=== PATIENT | male | born 1975 | race Caucasian/White ===

== ENCOUNTER 2022-11-03 21:00 | Inpatient (IN) | payer MEDICAID ==
[~2022-11-03] VITALS: Ht 172.7 cm; Wt 80.3 kg
[2022-11-03 21:26] VITALS: BP 142/90
--- NOTE | 2022-11-03 21:35 | NUR ---
TO LOBBY FOLLOWING TRIAGE
--- NOTE | 2022-11-04 00:15 | NUR ---
PT TO BED 12 VIA W/C
--- NOTE | 2022-11-04 00:31 | NUR ---
Patient lying in bed, A/Ox4, chest rise and fall symmetrical, no s/s of distress, patient on monitor.
[2022-11-04] MEDS: VANCOMYCIN 1,000 MG in DEXTROSE 5% 250 ML IV ONE ×2 (00:35→02:30)
[2022-11-04] MEDS ORDERED: MORPHINE SULFATE 4 MG/ML SYR IVP ONE (00:35)
[2022-11-04] MEDS ORDERED: PIPERACILLIN/TAZOBACTAM 3.375 GM in DEXTROSE 5% 50 ML IV ONE (00:35)
[2022-11-04] MEDS ORDERED: NACL 0.9% 1,000 ML IV ONE ×2 (00:35→03:15)
--- NOTE | 2022-11-04 00:45 | NUR ---
X-Ray at bedside.
[2022-11-04 01:27] LABS: BASOPHILS # (AUTO) 0.1 K/uL (0.00-0.22); BASOPHILS % (AUTO) 0.6 % (0.0-2.0); EOSINOPHILS # (AUTO) 0.1 K/uL (0-0.4); EOSINOPHILS % (AUTO) 0.3 % (0.0-4.0); HEMATOCRIT 37.4 % (36-52); HEMOGLOBIN 12.5 g/dL (12.0-18.0); LYMPHOCYTES # (AUTO) 1.9 K/uL (2.0-11.5); LYMPHOCYTES % (AUTO) 8.1 % (20.5-51.1); MEAN CORPUSCULAR HEMOGLOBIN 29 pg (27-31); MEAN CORPUSCULAR HGB CONC 34 g/dL (33-37); MEAN CORPUSCULAR VOLUME 85.8 fL (80-94); MONOCYTES # (AUTO) 1.6 K/uL (0.8-1.0); MONOCYTES % (AUTO) 7.1 % (1.7-9.3); NEUTROPHILS # (AUTO) 19.5 K/uL (1.8-7.7); NEUTROPHILS % (AUTO) 83.9 % (42.2-75.2); PLATELET COUNT (AUTO) 646 K/uL (140-450); RED BLOOD CELL COUNT(AUTO) 4.36 MIL/uL (4.20-6.10); RED CELL DISTRIBUTION WIDTH 12.4 % (11.6-13.7); WHITE BLOOD COUNT (AUTO) 23.2 K/uL (4.8-10.8)
[2022-11-04] MEDS ORDERED: PIPERACILLIN/TAZOBACTAM 3.375 GM VIAL IV ONE (01:30)
[2022-11-04] MEDS ORDERED: LABETALOL 20 MG/4 ML VIAL IVP ONE (01:35)
--- NOTE | 2022-11-04 01:45 | NUR ---
PT'S BP AFTER MORPHINE ADMINISTRATION 168/97, CHRIS CARRILLO MADE AWARE. INSTRUCTS TO HOLD LABETOLOL
--- NOTE | 2022-11-04 01:58 | NUR ---
YELENA COLLECTED AND TAKEN TO LAB.
[2022-11-04] MEDS ORDERED: VANCOMYCIN 1,000 MG VIAL ONE (02:08)
[2022-11-04 02:17] LABS: ALBUMIN 1.9 g/dL (3.4-5.0); ANION GAP 16.3 (8-16); CARBON DIOXIDE 27.8 mmol/L (21-32); CREATININE 1.5 mg/dL (0.6-1.3); POTASSIUM 4.1 mmol/L (3.5-5.1); TOTAL BILIRUBIN 0.3 mg/dL (0.0-1.0)
--- NOTE | 2022-11-04 02:30 | NUR ---
Patient lying in bed, A/Ox4, chest rise and fall symmetrical, no s/s of distress, patient on monitor. Addendum: 11/04/22 at 0550 by [email or web address] Patient lying in bed, A/Ox4, chest rise and fall symmetrical, no c/o pain or s/s of distress.
--- NOTE | 2022-11-04 04:20 | NUR ---
Patient lying in bed, A/Ox4, chest rise and fall symmetrical, no c/o pain or s/s of distress.
[2022-11-04] MEDS ORDERED: INSULIN LISPRO SLIDING SCALE 100 UNITS/ML VIAL SUBQ PRN ×2 (05:45→10:10)
[2022-11-04] MEDS ORDERED: DEXTROSE 50% 50 ML SYR IVP PRN ×3 (05:45→10:10)
--- NOTE | 2022-11-04 05:50 | NUR ---
Patient noted to have existing wounds upon arrival to ER. Photos taken of wound and placed in chart. Wound covered with dressing. Physician, Dr. Ignacio aware. Addendum: 11/04/22 at 0644 by [email or web address] Patient noted to have existing wounds upon arrival to ER. Photos taken of wound, unable to place in chart, ER MD aware and administration aware. Wound covered with dressing.
[2022-11-04] MEDS: NACL 0.9% 1,000 ML IV SCH ×2 (06:27→16:01)
[2022-11-04] MEDS ORDERED: METF-1139 PO (06:31)
[2022-11-04] MEDS ORDERED: TERB-5 PO (06:31)
[2022-11-04] MEDS ORDERED: ATOR20TA PO (06:31)
[2022-11-04] MEDS ORDERED: LOSA100T2 PO ×3 (06:31→07:16)
[2022-11-04] MEDS ORDERED: GLIP10TE PO (06:31)
[2022-11-04] MEDS ORDERED: ALOG12.5 PO (06:31)
--- NOTE | 2022-11-04 06:50 | NUR ---
Patient BP of 175/105 and HR of [address] Bunch gave orders to start patient's Cozaar home medications. Readback completed, medication order entered.
--- NOTE | 2022-11-04 07:05 | NUR ---
Patient lying in bed, A/Ox4, chest rise and fall symmetrical, no c/o pain or s/s of distress.
[2022-11-04] MEDS ORDERED: BLOOD GLUCOSE MONITORING 1 DEV DEV FS SCH ×2 (07:30→11:30)
--- NOTE | 2022-11-04 07:33 | NUR ---
Change of shift report given to AM shift Nurse Maureen RN. AM shift Nurse Maureen RN verbalized understanding of report, no further questions.
[2022-11-04] MEDS ORDERED: LOSARTAN 50 MG TAB PO SCH ×2 (08:00→09:00)
[2022-11-04 08:25] LABS: BASOPHILS # (AUTO) 0.1 K/uL (0.00-0.22); BASOPHILS % (AUTO) 0.3 % (0.0-2.0); EOSINOPHILS # (AUTO) 0.1 K/uL (0-0.4); EOSINOPHILS % (AUTO) 0.7 % (0.0-4.0); HEMATOCRIT 30.6 % (36-52); MEAN CORPUSCULAR HEMOGLOBIN 28 pg (27-31); MEAN CORPUSCULAR HGB CONC 33 g/dL (33-37); MEAN CORPUSCULAR VOLUME 85.7 fL (80-94); MONOCYTES # (AUTO) 1.5 K/uL (0.8-1.0); MONOCYTES % (AUTO) 8.4 % (1.7-9.3); NEUTROPHILS # (AUTO) 14.5 K/uL (1.8-7.7); NEUTROPHILS % (AUTO) 79.6 % (42.2-75.2); PLATELET COUNT (AUTO) 513 K/uL (140-450); RED BLOOD CELL COUNT(AUTO) 3.57 MIL/uL (4.20-6.10); RED CELL DISTRIBUTION WIDTH 12.4 % (11.6-13.7); WHITE BLOOD COUNT (AUTO) 18.2 K/uL (4.8-10.8)
[2022-11-04 08:30] VITALS: BP 168/101
--- NOTE | 2022-11-04 08:30 | NUR ---
PT WAS BROUGHT IN FROM THE ED IN STABLE CONDITION, AMBULATED FROM THE GURNEY TO THE BED WITH STEADY GAIT. ALL BELONGINGS IN POSSESSION, CLOTHES, SANDALS AND PHONE. BROTHER AT BEDSIDE, EDGAR MAHARAJ [phone]. FULL ASSESSMENT COMPLETED. LUNG SOUNDS CLEAR, ROOM AIR, CHEST RISING AND FALLING EVEN AND UNLABORED. A&OX4, EQUAL PUPILS, S1 S2 HEART SOUNDS, +1 EDEMA ON RIGHT FOOT. NO WARMTH NOTED. ACTIVE BOWEL SOUNDS. +2 PEDAL PULSES. WOUND ASSESSMENT COMPLETE, PICTURE OBTAINED AND PLACED IN CHART. NO PAIN REPORTED. IV PATENT AND INTACT, RUNNING NS @100.
--- NOTE | 2022-11-04 08:45 | NUR ---
Patient will be admitted to care of DR WALSH. Admited to TELE. Will go to room 111A. Belongings list completed. Report to YUNIEL.
[2022-11-04 08:50] LABS: ANION GAP 12.6 (8-16); CARBON DIOXIDE 28.6 mmol/L (21-32); CREATININE 1.3 mg/dL (0.6-1.3); POTASSIUM 4.2 mmol/L (3.5-5.1)
--- NOTE | 2022-11-04 10:01 | NUR ---
CALLED LAB REGARDING STEPHANIE ABX NOT BEING DELIVERED. STATED THEY WILL BRING ONE. PT BREAKFAST TRAY BROUGHT TO BEDSIDE,
[2022-11-04] MEDS ORDERED: ONDANSETRON 4 MG/2 ML VIAL IVP PRN (10:10)
[2022-11-04] MEDS ORDERED: HYDROcodone/APAP 7.5/325 MG 1 TAB PO PRN (10:10)
[2022-11-04 11:43] LABS: CHOL/HDL RATIO 4.9 (1-4.5); FREE T4 (FREE THYROXINE) 1.28 ng/dL (0.76-1.46); MAGNESIUM 1.8 mg/dL (1.8-2.4); PHOSPHORUS 3.4 mg/dL (2.5-4.9); THYROID STIMULATING HORMONE 2.27 uIU/mL (0.34-3.74)
[2022-11-04 12:00] VITALS: BP 152/89
[2022-11-04 12:05] LABS: BASOPHILS # (AUTO) 0.1 K/uL (0.00-0.22); BASOPHILS % (AUTO) 0.3 % (0.0-2.0); EOSINOPHILS # (AUTO) 0.1 K/uL (0-0.4); EOSINOPHILS % (AUTO) 0.6 % (0.0-4.0); HEMATOCRIT 28.8 % (36-52); HEMOGLOBIN 9.6 g/dL (12.0-18.0); LYMPHOCYTES # (AUTO) 1.7 K/uL (2.0-11.5); LYMPHOCYTES % (AUTO) 9.2 % (20.5-51.1); MEAN CORPUSCULAR HEMOGLOBIN 29 pg (27-31); MEAN CORPUSCULAR HGB CONC 33 g/dL (33-37); MEAN CORPUSCULAR VOLUME 85.7 fL (80-94); MONOCYTES # (AUTO) 1.4 K/uL (0.8-1.0); MONOCYTES % (AUTO) 7.7 % (1.7-9.3); NEUTROPHILS # (AUTO) 15.2 K/uL (1.8-7.7); NEUTROPHILS % (AUTO) 82.2 % (42.2-75.2); PLATELET COUNT (AUTO) 503 K/uL (140-450); RED BLOOD CELL COUNT(AUTO) 3.36 MIL/uL (4.20-6.10); RED CELL DISTRIBUTION WIDTH 12.6 % (11.6-13.7); WHITE BLOOD COUNT (AUTO) 18.5 K/uL (4.8-10.8)
[2022-11-04] MEDS: DRY DRESSING TP SCH (12:23)
[2022-11-04] MEDS: GAUZE TP SCH (12:23)
[2022-11-04] MEDS: MILD SOAP AND WATER TP SCH (12:24)
[2022-11-04] MEDS: BLOOD GLUCOSE MONITORING 1 DEV DEV FS SCH ×3 (12:25→20:32)
[2022-11-04] MEDS: INSULIN LISPRO SLIDING SCALE 100 UNITS/ML VIAL SUBQ PRN ×3 (12:26→20:30)
[2022-11-04 12:29] LABS: ANION GAP 8.8 (8-16); CARBON DIOXIDE 31.2 mmol/L (21-32); CREATININE 1.3 mg/dL (0.6-1.3)
[2022-11-04 13:30] LABS: PROTHROMBIN TIME 10.3 secs (10.8-13.4)
[2022-11-04] MEDS ORDERED: METOPROLOL 25 MG TAB PO SCH (15:40)
--- NOTE | 2022-11-04 15:55 | NUR ---
CALLED BROTHER, EDGAR MAHARAJ, REGARDING BRINGING MEDICATION FROM HOME. NO ANSWER. VOICEMAIL LEFT.
[2022-11-04 16:00] VITALS: BP 159/96
--- NOTE | 2022-11-04 17:28 | NUR ---
PATIENT HAS BEEN SCREENED AND CATEGORIZED HIGH NUTRITION RISK. PATIENT WILL BE SEEN WITHIN 1-2 DAYS OF ADMISSION. REVIEWED BY ALISON LEY RD Addendum: 11/04/22 at [address] [facility] CONSULT RECEIVED FOR WOUNDS/PRESSURE ULCERS ON 11/04/22.
[2022-11-04] MEDS ORDERED: VANCOMYCIN PER PHARMACY MC PRN (17:30)
--- NOTE | 2022-11-04 18:47 | NUR ---
KAYLI KERN; [phone] SISTER IN LAW; ZAYNAB; [phone] BROTHER; EDGAR MAHARAJ; [phone]
[2022-11-04 18:55] LABS: APPEARANCE,URINE CLEAR (CLEAR); BILIRUBIN,URINE NEGATIVE (NEGATIVE); BLOOD, URINE TRACE-I (NEGATIVE); COLOR,URINE YELLOW (YELLOW); LEUKOCYTE ESTERASE ,URINE NEGATIVE (NEGATIVE); NITRITE, URINE NEGATIVE (NEGATIVE); UGLUCOSE 3+ (NEGATIVE)
--- NOTE | 2022-11-04 19:05 | NUR ---
RECEIVED PT FROM MORNING SHIFT NURSE. PT IS AOX4, BELARUSIAN SPEAKING, ABLE TO VERBALIZE NEEDS AND ABLE TO FOLLOW COMMANDS. PT IS AMBULATORY, ON ROOM AIR AND ON CCHO DIET. PT HAS IV ON RIGHT AC GAUGE 20 RUNNING WITH NS AT 100 ML/HR. PT SKIN IS INTACT. NO COMPLAINS OF PAIN AT THIS TIME. NO S/S OF RESPIRATORY DISTRESS NOTED. ALL SAFETY MEASURES IMPLEMENTED. BED IN LOW POSITION, BED WHEELS ON LOCK AND CALL LIGHT WITHIN REACH.
[2022-11-04 19:23] LABS: WBC,URINE NONE SEEN /HPF (0-5)
[2022-11-04 20:00] VITALS: BP 153/98
[2022-11-04] MEDS: PIPERACILLIN/TAZOBACTAM 3.375 GM in DEXTROSE 5% 50 ML IV SCH (20:16)
--- NOTE | 2022-11-04 20:32 | NUR ---
PT BLOOD GLUCOSE IS 226. HUMALOG INSULIN 4 UNITS WAS GIVEN TO PT. NO COMPLAINS OF PAIN AT THIS TIME. NO S/S OF RESPIRATORY DISTRESS NOTED. ALL SAFETY MEASURES IMPLEMENTED. BED IN LOW POSITION, BED WHEELS ON LOCK AND CALL LIGHT WITHIN REACH.
[2022-11-04 20:36] LABS: RBC,URINE 0-5 /HPF (0-5)
[2022-11-04] MEDS ORDERED: glipiZIDE ER 5 MG TABER PO SCH (21:00)
[2022-11-04] MEDS: DOCUSATE SODIUM 100 MG GELCAP PO SCH (21:15)
[2022-11-04] MEDS: METOPROLOL 25 MG TAB PO SCH (21:15)
[2022-11-04] MEDS: VANCOMYCIN 750 MG in DEXTROSE 5% 250 ML IV SCH (21:17)
--- NOTE | 2022-11-04 21:17 | NUR ---
ALL SCHEDULED AND PRESCRIBED MEDICATION WAS GIVEN TO PT PER MD ORDER. ALL SAFETY MEASURES IMPLEMENTED. BED IN LOW POSITION, BED WHEELS ON LOCK AND CALL LIGHT WITHIN REACH.
--- NOTE | 2022-11-04 22:00 | NUR ---
PUT PT ON 2L NC MADHURI TO PT IS SATTING AT 89-91% PT IS NOW SATING AT 98% ALL SAFETY MEASURES IMPLEMENTED. BED IN LOW POSITION, BED WHEELS ON LOCK AND CALL LIGHT WITHIN REACH.
[2022-11-04 22:19] LABS: BARBITURATE, URINE NEGATIVE ng/ml (NEG <=200); BENZODIAZEPINE, URINE NEGATIVE ng/mL (NEG <=200); CANNABINOID, URINE NEGATIVE ng/mL (NEG <=50); COCAINE, URINE NEGATIVE ng/mL (NEG <=300); OPIATE, URINE POSITIVE ng/mL (NEG <=2000); PHENCYCLIDINE SCREEN,URINE NEGATIVE ng/mL (NEG <=25)
[2022-11-05] VITALS: BP 155/91
--- NOTE | 2022-11-05 | NUR ---
PT IS ON SLEEP. CHEST RISE AND FALL SYMMETRICALLY NOTED. RESPIRATION IS EVEN AND UNLABORED. NO S/S OF RESPIRATORY DISTRESS NOTED. ALL SAFETY MEASURES IMPLEMENTED. BED IN LOW POSITION, BED WHEELS ON LOCK AND CALL LIGHT WITHIN REACH.
[2022-11-05] MEDS: NACL 0.9% 1,000 ML IV SCH ×3 (02:13→22:01)
--- NOTE | 2022-11-05 03:39 | NUR ---
PT WAS GIVEN PRN PAIN MEDICATION DUE TO RIGHT FOOT/HEEL PAIN WITH PAIN SCALE OF 6/10. ALL SAFETY MEASURES IMPLEMENTED. BED IN LOW POSITION, BED WHEELS ON LOCK AND CALL LIGHT WITHIN REACH.
[2022-11-05 04:00] VITALS: BP 159/114
[2022-11-05] MEDS: PIPERACILLIN/TAZOBACTAM 3.375 GM in DEXTROSE 5% 50 ML IV SCH ×3 (04:52→20:39)
--- NOTE | 2022-11-05 04:52 | NUR ---
SCHEDULED AND PRESCRIBED MEDICATION WAS GIVEN TO PT PER MD ORDER. PT DENIES PAIN. NO S/S OF RESPIRATORY DISTRESS NOTED. ALL SAFETY MEASURES IMPLEMENTED. BED IN LOW POSITION, BED WHEELS ON LOCK AND CALL LIGHT WITHIN REACH.
[2022-11-05] MEDS: BLOOD GLUCOSE MONITORING 1 DEV DEV FS SCH ×4 (06:33→20:39)
[2022-11-05] MEDS: INSULIN LISPRO SLIDING SCALE 100 UNITS/ML VIAL SUBQ PRN ×4 (06:34→20:40)
--- NOTE | 2022-11-05 06:34 | NUR ---
PT BLOOD GLUCOSE IS 280. HUMALOG INSULIN 6 UNITS WAS GIVEN TO PT.
[2022-11-05 07:04] LABS: BASOPHILS # (AUTO) 0.1 K/uL (0.00-0.22); BASOPHILS % (AUTO) 0.4 % (0.0-2.0); EOSINOPHILS # (AUTO) 0.1 K/uL (0-0.4); EOSINOPHILS % (AUTO) 0.5 % (0.0-4.0); HEMATOCRIT 26.4 % (36-52); HEMOGLOBIN 8.8 g/dL (12.0-18.0); LYMPHOCYTES % (AUTO) 9.7 % (20.5-51.1); MEAN CORPUSCULAR HEMOGLOBIN 29 pg (27-31); MEAN CORPUSCULAR HGB CONC 33 g/dL (33-37); MEAN CORPUSCULAR VOLUME 85.7 fL (80-94); MONOCYTES # (AUTO) 1.6 K/uL (0.8-1.0); MONOCYTES % (AUTO) 7.7 % (1.7-9.3); NEUTROPHILS # (AUTO) 16.6 K/uL (1.8-7.7); NEUTROPHILS % (AUTO) 81.7 % (42.2-75.2); PLATELET COUNT (AUTO) 457 K/uL (140-450); RED BLOOD CELL COUNT(AUTO) 3.08 MIL/uL (4.20-6.10); RED CELL DISTRIBUTION WIDTH 12.4 % (11.6-13.7); WHITE BLOOD COUNT (AUTO) 20.3 K/uL (4.8-10.8)
[2022-11-05 07:10] LABS: ANION GAP 12.2 (8-16); CARBON DIOXIDE 25.6 mmol/L (21-32); CREATININE 1.1 mg/dL (0.6-1.3); POTASSIUM 3.8 mmol/L (3.5-5.1)
--- NOTE | 2022-11-05 07:10 | NUR ---
ASSUMED CONTINUITY OF CARE. INITIAL ASSESSMENT DONE. ELEVATED BLE WITH PILLOWS. CALL LIGHT WITHIN REACH.
--- NOTE | 2022-11-05 07:10 | NUR ---
PT IS STABLE. ENDORSED PT TO MORNING SHIFT NURSE FOR CONTINUITY OF CARE.
[2022-11-05 07:19] LABS: MAGNESIUM 1.6 mg/dL (1.8-2.4); PHOSPHORUS 3.1 mg/dL (2.5-4.9)
[2022-11-05 08:00] VITALS: BP 131/80
--- NOTE | 2022-11-05 08:00 | NUR ---
Patient's Plan of Care was discussed and reviewed with YUNI: JOSIE
--- NOTE | 2022-11-05 08:32 | NUR ---
PAGED DR. CANCINO REGARDING MAG 1.6. GOT T.O. OF MAG-OX 400 MG PO DAILY. INFORMED CHARGE NURSE HARRIS BREWER.
[2022-11-05] MEDS: DOCUSATE SODIUM 100 MG GELCAP PO SCH ×2 (08:54→20:38)
[2022-11-05] MEDS: LOSARTAN 50 MG TAB PO SCH (08:54)
[2022-11-05] MEDS: ATORVASTATIN 20 MG TAB PO SCH (08:54)
[2022-11-05] MEDS: METOPROLOL 25 MG TAB PO SCH ×2 (08:54→20:38)
[2022-11-05] MEDS ORDERED: TERBINAFINE HCL PO SCH (09:00)
[2022-11-05] MEDS ORDERED: METFORMIN HCL PO SCH (09:00)
[2022-11-05] MEDS ORDERED: LOSARTAN 50 MG TAB PO SCH (09:00)
[2022-11-05] MEDS ORDERED: ALOGLIPTIN BENZOATE PO SCH (09:00)
[2022-11-05] MEDS: PANTOPRAZOLE 40 MG INJ VIAL IVP SCH (09:11)
[2022-11-05] MEDS: VANCOMYCIN 750 MG in DEXTROSE 5% 250 ML IV SCH ×2 (09:11→21:15)
[2022-11-05] MEDS: MAGNESIUM OXIDE 400 MG TAB PO SCH (09:36)
--- NOTE | 2022-11-05 09:42 | NUR ---
DR. CANCINO CAME SPOKE TO PT. AT BEDSIDE, CHECKED PT. WOUND ON RIGHT HEEL AND ORDERED TO DOWNGRADE PT. TO MED-SURG STATUS. INFORMED CHARGE NURSE HARRIS BREWER.
[2022-11-05 12:00] VITALS: BP 148/84
--- NOTE | 2022-11-05 13:05 | NUR ---
WOUND CARE DONE WITH ASSISTANCE FROM GALLITO BREWER WOUND CARE NURSE. SPECIMEN FOR WOUND CULTURE COLLECTED.
[2022-11-05] MEDS: metFORMIN 850 MG TAB PO SCH ×2 (13:16→16:42)
[2022-11-05] MEDS: MILD SOAP AND WATER TP SCH (13:23)
[2022-11-05] MEDS: GAUZE TP SCH (13:23)
[2022-11-05] MEDS: DRY DRESSING TP SCH (13:23)
--- NOTE | 2022-11-05 13:30 | NUR ---
WOUND CARE EVALUATION NOTES: REASON FOR EVALUATION: RIGHT HEEL DM ULCER WOUND ASSESSMENT COMPLETED ON THIS 47 Y/O MALE ADMITTED TO [facility] UNIT FOR CELLULITIS. PATIENT IS FROM HOME. PAST MEDICAL HISTORY INCLUDES DM II, HTN. ALL ABOVE INFORMATION WAS OBTAINED FROM THE ADMISSION H&P. PATIENT IS AAOX4, VERBAL. SKIN IS WARM TO TOUCH. ABLE TO TURN SELF. PLAN OF CARE AND PRESSURE PREVENTATIVE MEASURES DISCUSSED WITH PATIENT AND PRIMARY RN. PATIENT VERBALIZED UNDERSTANDING. PATIENT ADMITTED WITH RIGHT HEEL DM ULCER. COMORBIDITIES RELATED TO FURTHER SKIN BREAKDOWN SUCH DECREASED MOBILITY AND HISTORY OF DM II. INTEGUMENTARY: - RIGHT HEEL DIABETIC ULCER 3 X 3 X 0 CM WITH POSITIVE OSTEOMYELITIS SHOWN ON NM BONE SCAN RIGHT FOOT. WOUND BED BLACK, ROUGH, NO DRAINGE, MILD FOUL ODOR. PERIWOUND PINK, INTACT. RECOMMENDATIONS: - RIGHT HEEL DIABETIC ULCER:CLEANSE WITH NS, PAT DRY, APPLY BETADINE SOAKED GAUZE, COVER WITH DRY DRESSING, AND SECURE WITH KERLIX ROLL DAILY AND PRN IF SOILED. - ASSIST WITH TURNING AND REPOSITIONING Q2H NEEDED. - ASSESS AND MONITOR SKIN CONDITION DURING POSITION CHANGE. PLEASE PAY ATTENTION TO SACRALCOCCYX AND HEELS. - KEEP SKIN DRY AND CLEAN AT ALL TIMES. - RD CONSULT RECOMMENDATIONS DISCUSSED WITH PRIMARY RN. WILL FOLLOW-UP PATIENT Q7-10 DAYS AND PRN. PLEASE CONTACT WOUND CARE NURSE FOR ANY CONCERNS AND CHANGES IN WOUND CONDITION.
[2022-11-05 16:00] VITALS: BP 152/90
--- NOTE | 2022-11-05 19:05 | NUR ---
REPORT GIVEN TO DIEGO BREWER. IN STABLE CONDITION. IVF INFUSING WELL.
--- NOTE | 2022-11-05 19:06 | NUR ---
RECEIVED PT FROM MORNING SHIFT NURSE. PT IS AOX4, IRISH SPEAKING, ABLE TO VERBALIZE NEEDS AND ABLE TO FOLLOW COMMANDS. PT IS AMBULATORY, ON 3L AND ON CCHO DIET. PT HAS IV ON RIGHT AC GAUGE 20 RUNNING WITH NS AT 100 ML/HR. PT HAS RIGHT HEEL DM ULCER. NO COMPLAINS OF PAIN AT THIS TIME. NO S/S OF RESPIRATORY DISTRESS NOTED. ALL SAFETY MEASURES IMPLEMENTED. BED IN LOW POSITION, BED WHEELS ON LOCK AND CALL LIGHT WITHIN REACH.
--- NOTE | 2022-11-05 19:45 | NUR ---
ASSISTED DR. CELAYA TO DO BEDSIDE ULCER DEBRIDEMENT AND TAUGHT PT'S BROTHER TO DO WOUND CARE AND DRESSING. DR. CELAYA PLAN; IF WBC IS NOT IMPROVED, HE WILL DO I&D.
--- NOTE | 2022-11-05 21:15 | NUR ---
ALL SCHEDULED AND PRESCRIBED MEDICATION WAS GIVEN TO PT PER MD ORDER. PT BLOOD GLUCOSE IS 289. HUMALOG INSULIN 6 UNITS WAS GIVEN. NO S/S OF RESPIRATORY DISTRESS NOTED. ALL SAFETY MEASURES IMPLEMENTED. BED IN LOW POSITION, BED WHEELS ON LOCK AND CALL LIGHT WITHIN REACH.
[2022-11-06] VITALS: BP 157/100
--- NOTE | 2022-11-06 | NUR ---
PT IS ON SLEEP. CHEST RISE AND FALL SYMMETRICALLY NOTED. RESPIRATION IS EVEN AND UNLABORED. ALL SAFETY MEASURES IMPLEMENTED. BED IN LOW POSITION AND CALL LIGHT WITHIN REACH.
[2022-11-06] MEDS: GAUZE TP SCH ×3 (01:27→13:40)
--- NOTE | 2022-11-06 02:00 | NUR ---
CHECKED THE PT, STILL ON SLEEP. CHEST RISE AND FALL SYMMETRICALLY NOTED. RESPIRATION IS EVEN AND UNLABORED. ALL SAFETY MEASURES IMPLEMENTED. BED IN LOW POSITION AND CALL LIGHT WITHIN REACH.
[2022-11-06] MEDS: PIPERACILLIN/TAZOBACTAM 3.375 GM in DEXTROSE 5% 50 ML IV SCH ×3 (04:16→20:07)
--- NOTE | 2022-11-06 04:16 | NUR ---
SCHEDULED AND PRESCRIBED MEDICATION WAS GIVEN TO PT PER MD ORDER. ALL SAFETY MEASURES IMPLEMENTED. BED IN LOW POSITION AND CALL LIGHT WITHIN REACH.
[2022-11-06] MEDS: BLOOD GLUCOSE MONITORING 1 DEV DEV FS SCH ×4 (06:35→20:25)
[2022-11-06] MEDS: INSULIN LISPRO SLIDING SCALE 100 UNITS/ML VIAL SUBQ PRN ×4 (06:36→20:35)
--- NOTE | 2022-11-06 06:36 | NUR ---
PT BLOOD GLUCOSE IS 265. HUMALOG INSULIN 6 UNITS WAS GIVEN TO PT PER MD ORDER.
--- NOTE | 2022-11-06 07:30 | NUR ---
RECEIVED REPORT FROM MAT TESTERHEATH CORTEZ FOR CONTINUITY OF CARE. INITIAL ASSESSMENT DONE. ON CONT. O2 @ 3L/NC. IVF INFUSING WELL. NO C/O PAIN OR DISCOMFORT. CALL LIGHT KEPT WITHIN REACH. WILL CONTINUE TO MONITOR.
--- NOTE | 2022-11-06 07:32 | NUR ---
PT IS STABLE. ENDORSED MEDICATION TO THE MORNING NURSE TO GIVE IT PHARMACY AND ENDORSED PT FOR CONTINUITY OF CARE.
[2022-11-06 08:00] VITALS: BP 152/96
[2022-11-06] MEDS: NACL 0.9% 1,000 ML IV SCH ×2 (08:00→17:35)
--- NOTE | 2022-11-06 08:00 | NUR ---
GOT REPORT FROM THE NIGHT NURSE, NO SOB PT RESTING IN BED.[id number]
--- NOTE | 2022-11-06 08:00 | NUR ---
Patient's Plan of Care was discussed and reviewed with UPHOLSTERY ESTIMATOR:
[2022-11-06 08:51] LABS: MAGNESIUM 1.7 mg/dL (1.8-2.4); PHOSPHORUS 3.1 mg/dL (2.5-4.9)
[2022-11-06 08:54] LABS: BASOPHILS # (AUTO) 0.1 K/uL (0.00-0.22); BASOPHILS % (AUTO) 0.5 % (0.0-2.0); EOSINOPHILS # (AUTO) 0.2 K/uL (0-0.4); EOSINOPHILS % (AUTO) 1.3 % (0.0-4.0); HEMATOCRIT 27.2 % (36-52); LYMPHOCYTES # (AUTO) 1.9 K/uL (2.0-11.5); MEAN CORPUSCULAR HEMOGLOBIN 28 pg (27-31); MEAN CORPUSCULAR HGB CONC 33 g/dL (33-37); MEAN CORPUSCULAR VOLUME 86.1 fL (80-94); MONOCYTES # (AUTO) 1.5 K/uL (0.8-1.0); MONOCYTES % (AUTO) 7.8 % (1.7-9.3); NEUTROPHILS # (AUTO) 15.4 K/uL (1.8-7.7); PLATELET COUNT (AUTO) 449 K/uL (140-450); RED BLOOD CELL COUNT(AUTO) 3.15 MIL/uL (4.20-6.10); RED CELL DISTRIBUTION WIDTH 12.4 % (11.6-13.7); WHITE BLOOD COUNT (AUTO) 19.1 K/uL (4.8-10.8)
[2022-11-06] MEDS: VANCOMYCIN 750 MG in DEXTROSE 5% 250 ML IV SCH ×2 (09:00→20:51)
[2022-11-06] MEDS: MAGNESIUM OXIDE 400 MG TAB PO SCH (09:00)
[2022-11-06] MEDS: PANTOPRAZOLE 40 MG INJ VIAL IVP SCH (09:00)
[2022-11-06 09:03] LABS: CARBON DIOXIDE 24.7 mmol/L (21-32); CREATININE 1.3 mg/dL (0.6-1.3); POTASSIUM 3.7 mmol/L (3.5-5.1)
[2022-11-06 09:44] LABS: LYMPHOCYTES % (AUTO) 9.7 % (20.5-51.1); NEUTROPHILS % (AUTO) 80.7 % (42.2-75.2)
--- NOTE | 2022-11-06 10:30 | NUR ---
ADDITIONAL MEDICATIONS BOUGHT FROM FAMILY GIVEN TO PHARMACY.
[2022-11-06] MEDS: ATORVASTATIN 20 MG TAB PO SCH (10:54)
[2022-11-06] MEDS: LOSARTAN 50 MG TAB PO SCH (10:55)
[2022-11-06] MEDS: metFORMIN 850 MG TAB PO SCH ×2 (10:55→17:29)
[2022-11-06] MEDS: DOCUSATE SODIUM 100 MG GELCAP PO SCH ×2 (10:55→20:07)
--- NOTE | 2022-11-06 10:55 | NUR ---
SCHEDULED PO MEDICATIONS WAS GIVEN. TOLERATING WELL.
--- NOTE | 2022-11-06 10:55 | NUR ---
IV ABT VANCOMYCIN WAS GIVEN BY SPENSER OSUNA. TOLERATING WELL.
[2022-11-06] MEDS: METOPROLOL 25 MG TAB PO SCH ×2 (10:56→20:07)
--- NOTE | 2022-11-06 12:12 | NUR ---
BS CHECKED 304. INSULIN WAS GIVEN PER SLIDING SCALE.
--- NOTE | 2022-11-06 12:32 | NUR ---
PT MAGNESIUM 1.7. CURRENTLY ON MAGNESIUM OXIDE 400 MG PO Q D. DR. CANCINO NOTIFIED WITH NO NEW ORDER.
[2022-11-06] MEDS: DRY DRESSING TP SCH (13:39)
[2022-11-06] MEDS: MILD SOAP AND WATER TP SCH (13:40)
--- NOTE | 2022-11-06 13:43 | NUR ---
IV ABT ZOSYN GIVEN BY FRANCK OSUNA. TOLERATING WELL.
[2022-11-06 16:00] VITALS: BP 145/90
--- NOTE | 2022-11-06 17:26 | NUR ---
BS CHECKED 203. INSULIN WAS GIVEN PER SLIDING SCALE.
--- NOTE | 2022-11-06 18:46 | NUR ---
11/06/22 RD INITIAL ASSESSMENT COMPLETED. PLEASE REFER TO NUTRITION ASSESSMENT UNDER CARE ACTIVITY FOR ESTIMATED NUTRITIONAL NEEDS. 1. CONTINUE 60 GRAMS CCHO DIET TOLERATED 2. RECOMMEND ANU BID TO PROMOTE WOUND HEALING 3. MONITOR PO INTAKE 4. RD TO FOLLOW-UP 3-5 DAYS, MODERATE RISK BEILNDA PEACOCK RD
--- NOTE | 2022-11-06 19:30 | NUR ---
REPORT GIVEN TO PERFORMANCE IMPROVEMENT DIRECTORHEATH CORTEZ FOR CONTINUITY OF CARE. REMAINS STABLE.
--- NOTE | 2022-11-06 19:31 | NUR ---
RECEIVED PT FROM MORNING SHIFT NURSE. PT IS AOX4, BELARUSIAN SPEAKING, ABLE TO VERBALIZE NEEDS AND ABLE TO FOLLOW COMMANDS. PT IS AMBULATORY, ON 3L AND ON CCHO DIET. PT HAS IV ON RIGHT AC GAUGE 20 RUNNING WITH NS AT 100 ML/HR. PT HAS RIGHT HEEL DM ULCER. NO COMPLAINS OF PAIN AT THIS TIME. NO S/S OF RESPIRATORY DISTRESS NOTED. ALL SAFETY MEASURES IMPLEMENTED. BED IN LOW POSITION, BED WHEELS ON LOCK AND CALL LIGHT WITHIN REACH.
[2022-11-06] MEDS: ACETAMINOPHEN 325 MG TAB PO PRN (20:07)
--- NOTE | 2022-11-06 20:35 | NUR ---
PT BLOOD GLUCOSE IS 198. HUMALOG INSULIN 2 UNITS WAS GIVEN TO PT PER MD ORDER.
--- NOTE | 2022-11-06 20:51 | NUR ---
ALL SCHEDULED AND PRESCRIBED MEDICATION WAS GIVEN TO PER MD ORDER. NO S/S OF RESPIRATORY DISTRESS NOTED. ALL SAFETY MEASURES IMPLEMENTED. BED IN LOW POSITION, BED WHEELS ON LOCK AND CALL LIGHT WITHIN REACH.
--- NOTE | 2022-11-06 22:00 | NUR ---
PT WAS GIVEN WARM BLANKET. PT DENIES PAIN. NO S/S OF RESPIRATORY DISTRESS NOTED. ALL SAFETY MEASURES IMPLEMENTED. BED IN LOW POSITION, BED WHEELS ON LOCK AND CALL LIGHT WITHIN REACH.
[2022-11-07] VITALS: BP 150/85
[2022-11-07] MEDS: GAUZE TP SCH ×3 (01:00→13:54)
--- NOTE | 2022-11-07 02:00 | NUR ---
CHECKED THE PT, STILL ON SLEEP. CHEST RISE AND FALL SYMMETRICALLY NOTED. RESPIRATION IS EVEN AND UNLABORED. NO S/S OF RESPIRATORY DISTRESS NOTED. ALL SAFETY MEASURES IMPLEMENTED. BED IN LOW POSITION, BED WHEELS ON LOCK AND CALL LIGHT WITHIN REACH.
[2022-11-07] MEDS: NACL 0.9% 1,000 ML IV SCH ×3 (04:08→23:22)
[2022-11-07] MEDS: PIPERACILLIN/TAZOBACTAM 3.375 GM in DEXTROSE 5% 50 ML IV SCH ×3 (04:08→20:20)
--- NOTE | 2022-11-07 05:00 | NUR ---
ACCORDING TO FORESTRY FACULTY MEMBER, PT REFUSED FOR BLOOD DRAW. EDUCATED THE PT THE IMPORTANCE OF. PT AGREED FOR BLOOD DRAW.
[2022-11-07] MEDS: ACETAMINOPHEN 325 MG TAB PO PRN (05:34)
[2022-11-07 06:07] LABS: BASOPHILS # (AUTO) 0.1 K/uL (0.00-0.22); BASOPHILS % (AUTO) 0.6 % (0.0-2.0); EOSINOPHILS # (AUTO) 0.4 K/uL (0-0.4); EOSINOPHILS % (AUTO) 1.9 % (0.0-4.0); HEMATOCRIT 28.1 % (36-52); HEMOGLOBIN 9.1 g/dL (12.0-18.0); LYMPHOCYTES # (AUTO) 2.2 K/uL (2.0-11.5); LYMPHOCYTES % (AUTO) 10.8 % (20.5-51.1); MEAN CORPUSCULAR HEMOGLOBIN 28 pg (27-31); MEAN CORPUSCULAR HGB CONC 32 g/dL (33-37); MONOCYTES # (AUTO) 1.7 K/uL (0.8-1.0); MONOCYTES % (AUTO) 8.5 % (1.7-9.3); NEUTROPHILS # (AUTO) 15.7 K/uL (1.8-7.7); NEUTROPHILS % (AUTO) 78.2 % (42.2-75.2); PLATELET COUNT (AUTO) 444 K/uL (140-450); RED BLOOD CELL COUNT(AUTO) 3.23 MIL/uL (4.20-6.10); RED CELL DISTRIBUTION WIDTH 12.6 % (11.6-13.7)
[2022-11-07 06:32] LABS: ANION GAP 14.3 (8-16); CARBON DIOXIDE 23.4 mmol/L (21-32); CREATININE 1.3 mg/dL (0.6-1.3); POTASSIUM 3.7 mmol/L (3.5-5.1)
[2022-11-07] MEDS: BLOOD GLUCOSE MONITORING 1 DEV DEV FS SCH ×4 (06:35→20:11)
[2022-11-07 06:37] LABS: MAGNESIUM 1.6 mg/dL (1.8-2.4); PHOSPHORUS 3.3 mg/dL (2.5-4.9)
[2022-11-07] MEDS: INSULIN LISPRO SLIDING SCALE 100 UNITS/ML VIAL SUBQ PRN ×4 (06:37→21:00)
--- NOTE | 2022-11-07 06:37 | NUR ---
PT BLOOD GLUCOSE IS 245. HUMALOG INSULIN 4 UNITS WAS GIVEN TO PT.
--- NOTE | 2022-11-07 07:22 | NUR ---
PT IS STABLE. ENDORSED PT TO MORNING SHIFT NURSE FOR CONTINUITY OF CARE.
[2022-11-07 08:00] VITALS: BP 151/89
[2022-11-07] MEDS: metFORMIN 850 MG TAB PO SCH ×2 (08:56→17:23)
[2022-11-07] MEDS: LOSARTAN 50 MG TAB PO SCH (08:56)
[2022-11-07] MEDS: DOCUSATE SODIUM 100 MG GELCAP PO SCH ×2 (08:56→20:21)
[2022-11-07] MEDS: ATORVASTATIN 20 MG TAB PO SCH (08:56)
[2022-11-07] MEDS: METOPROLOL 25 MG TAB PO SCH ×2 (08:57→20:21)
[2022-11-07] MEDS: MAGNESIUM OXIDE 400 MG TAB PO SCH (08:58)
[2022-11-07] MEDS: VANCOMYCIN 750 MG in DEXTROSE 5% 250 ML IV SCH (09:52)
[2022-11-07] MEDS: PANTOPRAZOLE 40 MG INJ VIAL IVP SCH (09:57)
[2022-11-07] MEDS: DRY DRESSING TP SCH (13:54)
[2022-11-07] MEDS: MILD SOAP AND WATER TP SCH (13:54)
--- NOTE | 2022-11-07 15:08 | NUR ---
DC PLANNING: PATIENT HAS AN APPOINTMENT ON 11/08/22 AT 3:30PM AT [facility] FOR MRI OF THE FOOT. ARRANGED TRANSPORT WITH [facility] [employer] CONSULTANT TIME 2:45PM WAIT AND RETURN. CM DISCUSSED WITH PATIENT AND PT AGREED . NOTIFIED LARY OSUNA. DAYSI TO FOLLOW
[2022-11-07 16:00] VITALS: BP 168/97
--- NOTE | 2022-11-07 19:21 | NUR ---
ENDORSED PT TO HUMAN CAPITAL ANALYST NURSE FOR CONTINUITY OF CARE. PT IS STABLE.
--- NOTE | 2022-11-07 19:25 | NUR ---
RECEIVED PATIENT LYING ON THE BED, NO SIGNS OF DISTRESS NOTED, PATIENT DENIES PAIN UPON ASSESSMENT, NS RUNNING @100 MLS/HR ON LEFT AC, G 20, ALL SAFETY MEASURES IN PLACE.
[2022-11-07 20:00] VITALS: BP 171/99
--- NOTE | 2022-11-07 20:21 | NUR ---
SCHEDULED MEDICATIONS GIVEN ORDERED.
--- NOTE | 2022-11-07 20:35 | NUR ---
DR. CELAYA CHECKED ON PATIENT'S RIGHT HEEL, WOUND CARE DONE. NO DRAINAGE NOTED ON AREA. WILL CONTINUE TO ASSESS AND MONITOR AREA.
--- NOTE | 2022-11-07 21:05 | NUR ---
BS 154 MG/DL, INSULIN COVERAGE GIVEN PER SLIDING SCALE. PATIENT DENIES PAIN, NO DISTRESS NOTED. ALL SAFETY MEASURES IN PLACE.
--- NOTE | 2022-11-07 23:26 | NUR ---
PATIENT IS AWAKE, TALKING TO HIS ROOM MATE, PATIENT DENIES PAIN, IN NO ACUTE DISTRESS. RIGHT HEEL ELEVATED WITH PILLOW. WILL CONTINUE TO MONITOR THE PATIENT.
[2022-11-08] MEDS: GAUZE TP SCH ×3 (01:02→13:29)
[2022-11-08] MEDS: PIPERACILLIN/TAZOBACTAM 3.375 GM in DEXTROSE 5% 50 ML IV SCH ×3 (04:29→22:38)
--- NOTE | 2022-11-08 04:30 | NUR ---
SCHEDULED IV ANTIBIOTIC GIVEN ORDERED. PATIENT IS ASLEEP, BREATHING EVEN AND NON LABORED ON 3LPM NC. CALL LIGHT WITHIN REACH. BED IN LOW AND LOCKED POSITION.
--- NOTE | 2022-11-08 06:30 | NUR ---
PATIENT'S BLOOD SUGAR IS 184 MG/DL, 2 UNITS INSULIN PER SLIDING SCALE GIVEN ORDERED.
[2022-11-08] MEDS: BLOOD GLUCOSE MONITORING 1 DEV DEV FS SCH ×4 (06:36→21:06)
[2022-11-08] MEDS: INSULIN LISPRO SLIDING SCALE 100 UNITS/ML VIAL SUBQ PRN ×3 (06:37→21:06)
[2022-11-08 06:53] LABS: BASOPHILS # (AUTO) 0.1 K/uL (0.00-0.22); BASOPHILS % (AUTO) 0.7 % (0.0-2.0); EOSINOPHILS # (AUTO) 0.3 K/uL (0-0.4); EOSINOPHILS % (AUTO) 1.3 % (0.0-4.0); HEMATOCRIT 26.7 % (36-52); HEMOGLOBIN 8.7 g/dL (12.0-18.0); LYMPHOCYTES # (AUTO) 1.9 K/uL (2.0-11.5); LYMPHOCYTES % (AUTO) 9.5 % (20.5-51.1); MEAN CORPUSCULAR HEMOGLOBIN 28 pg (27-31); MEAN CORPUSCULAR HGB CONC 33 g/dL (33-37); MEAN CORPUSCULAR VOLUME 86.1 fL (80-94); MONOCYTES # (AUTO) 1.5 K/uL (0.8-1.0); MONOCYTES % (AUTO) 7.5 % (1.7-9.3); NEUTROPHILS # (AUTO) 15.9 K/uL (1.8-7.7); PLATELET COUNT (AUTO) 473 K/uL (140-450); RED CELL DISTRIBUTION WIDTH 12.7 % (11.6-13.7); WHITE BLOOD COUNT (AUTO) 19.7 K/uL (4.8-10.8)
[2022-11-08 07:06] LABS: ANION GAP 11.8 (8-16); CARBON DIOXIDE 24.9 mmol/L (21-32); CREATININE 1.2 mg/dL (0.6-1.3); POTASSIUM 3.7 mmol/L (3.5-5.1)
--- NOTE | 2022-11-08 07:14 | NUR ---
ENDORSED PATIENT TO DAY NURSE FOR CONTINUITY OF CARE. PATIENT IN STABLE CONDITION.
--- NOTE | 2022-11-08 07:15 | NUR ---
RECEIVED REPORT FROM NIGHTSHIFT NURSE. PT ASLEEP IN BED, WOKE TO NAME AND TOUCH. PT URDU SPEAKING, AOX4, ON 2L NC, IV TO LEFT AC 20G, NS RUNNING AT 100ML/HR. PT REPORTS NO PAIN/DISTRESS. BED PLACED IN LOWEST POSITION, 2 SIDE RAILS UP, CALL LIGHT PLACED WITHIN REACH, REORIENTED PT TO CALL LIGHT. NO FURTHER NEEDS ARE TO BE MET AT THIS TIME. WILL CONTINUE WITH CARE.
[2022-11-08 08:00] VITALS: BP 173/92
[2022-11-08 08:12] LABS: MAGNESIUM 1.6 mg/dL (1.8-2.4); PHOSPHORUS 3.7 mg/dL (2.5-4.9)
[2022-11-08] MEDS: METOPROLOL 25 MG TAB PO SCH ×2 (08:46→21:05)
[2022-11-08] MEDS: DOCUSATE SODIUM 100 MG GELCAP PO SCH ×2 (08:46→21:05)
[2022-11-08] MEDS: LOSARTAN 50 MG TAB PO SCH (08:47)
[2022-11-08] MEDS: ATORVASTATIN 20 MG TAB PO SCH (08:47)
[2022-11-08] MEDS: metFORMIN 850 MG TAB PO SCH ×2 (08:48→17:04)
[2022-11-08] MEDS: MAGNESIUM OXIDE 400 MG TAB PO SCH (08:49)
[2022-11-08] MEDS: PANTOPRAZOLE 40 MG INJ VIAL IVP SCH (08:49)
[2022-11-08] MEDS: NACL 0.9% 1,000 ML IV SCH ×2 (10:35→20:00)
[2022-11-08] MEDS: DRY DRESSING TP SCH (13:28)
[2022-11-08] MEDS: MILD SOAP AND WATER TP SCH (13:29)
[2022-11-08 16:00] VITALS: BP 181/106
--- NOTE | 2022-11-08 17:55 | NUR ---
PT PICKED UP BY [facility] AT 1500, VIA [place]. GOING TO [facility] FOR MRI TO RIGHT FOOT. PT ARRIVED BACK WITH [facility] 1650, VIA [place]. PT AWAKE, AOX4. PUT BACK ON 2L NC, IV TO LEFT AC 20G, NS CONTINUED TO RUN AT 100ML/HR. NO SIGNS OF DISTRESS, PT REPORTS NO PAIN OR DISCOMFORT AT THIS TIME. PT BP IS HIGH, MD INFORMED. 1ST CHECK - (RIGHT ARM) BP: 186/104, HR: 91 2ND CHECK - (LEFT ARM) BP: 181/106, HR: 91 NONPHARMACOLOGICAL INTERVENTIONS AND COMFORT MEASURES PROVIDED. WILL CONTINUE WITH CARE.
--- NOTE | 2022-11-08 19:10 | NUR ---
PT IS RESTING IN BED, AWAKE. NO SIGNS OF DISTRESS, NO REPORTS OF PAIN OR DISCOMFORT. PT ON 2L NC, IV TO LEFT AC - CLEAN, INTACT - NS RUNNING AT 100ML/HR. BED IN LOWEST POSITION, 2 SIDE RAILS UP, CALL LIGHT PLACED WITHIN REACH. ENDORSED PT TO NIGHTSHIFT NURSE FOR CONTINUITY OF CARE.
--- NOTE | 2022-11-08 19:11 | NUR ---
RECEIVED ENDORSEMENT FOR CONTINUITY OF CARE FROM CHEYENNE OSUNA, PATIENT WAS ALSEEP AND STABLE DURING SHIFT CHANGE. EASY TO AWAKEN BY CALLING HIS NAME. PATIENT DENIES ANY PAIN AT THIS TIME. PATIENT BLOOD PRESSURE WAS NOTED ELEVATED. NURSING REPORTED THIS DURING SHIFT REPORT AND WILL GIVE PRN MEDICATION OR NEW ORDERS FOR BLOOD PRESSURE MEDICATION. PATIENT WAS GIVEN EDUCATION ON THE MEDICATION AND SIDE EFFECTS. PATIENT UNDERSTOOD AND AGREED. NO NOTED S/S OF RESPIRATORY DISTRESS. SIDE RAILS UP X 2. CALL LIGHT WITHIN REACH FOR ALL ASSISTANCE AND NEEDS. PATIENT IS AWARE OF HOW TO USE THE CALL LIGHT. [email or web address]
--- NOTE | 2022-11-08 22:50 | NUR ---
PATIENT WENT TO THE RESTROOM WITH BOWEL MOVEMENT. NOTED SOFT AND BROWN. PATIENT COMPLAINED OF HAVING MULTIPLE BOWEL MOVEMENT DURING AM SHIFT. IT WAS EDUCATED ON THE REFUSING STOOL SOFTENER IN THE MORNING AND REPORTING THE MULTIPLE INCIDENTS. PATIENT AWARE AND UNDERSTANDS. [email or web address]
[2022-11-09] VITALS: BP 162/89
--- NOTE | 2022-11-09 00:39 | NUR ---
VITAL SIGNS WERE COMPLETED AND TOLERATED WELL. PATIENT WAS ABLE TO GO BACK TO BE WITHOUT INCIDENT. DENIES ANY PAIN/DISCOMFORT. NO NOTED RESPIRATORY DISTRESS. SIDE RAILS UP X2 CALL LIGHT WITHIN REACH. [email or web address]
[2022-11-09] MEDS: GAUZE TP SCH ×3 (01:12→13:24)
--- NOTE | 2022-11-09 03:50 | NUR ---
IV FLUIDS REPLACED. DURING ROUNDS NURSING NOTED PATIENT IN BED ASLEEP. CHEST RISING AND FALLING WITHOUT INCIDENT. SIDE RAILS UP AND CALL LIGHT WITHIN REACH. [email or web address]
[2022-11-09] MEDS: PIPERACILLIN/TAZOBACTAM 3.375 GM in DEXTROSE 5% 50 ML IV SCH ×3 (05:43→21:25)
[2022-11-09] MEDS: NACL 0.9% 1,000 ML IV SCH ×2 (06:16→16:35)
[2022-11-09] MEDS: BLOOD GLUCOSE MONITORING 1 DEV DEV FS SCH ×4 (06:30→21:21)
[2022-11-09] MEDS: INSULIN LISPRO SLIDING SCALE 100 UNITS/ML VIAL SUBQ PRN ×3 (06:30→21:21)
--- NOTE | 2022-11-09 06:36 | NUR ---
PATIENT IN BED SLEEP DURING IVF CHANGE. NO S/S OF PAIN/DISCOMFORT OR RESPIRATORY DISTRESS. ALL NEEDS MET AND ANTICIPATED. SIDE RAILS UP CALL LIGHT WITHIN REACH. [email or web address]
[2022-11-09 07:23] LABS: BASOPHILS # (AUTO) 0.1 K/uL (0.00-0.22); BASOPHILS % (AUTO) 0.7 % (0.0-2.0); EOSINOPHILS # (AUTO) 0.4 K/uL (0-0.4); EOSINOPHILS % (AUTO) 2.4 % (0.0-4.0); HEMOGLOBIN 8.3 g/dL (12.0-18.0); LYMPHOCYTES % (AUTO) 12.4 % (20.5-51.1); MEAN CORPUSCULAR HEMOGLOBIN 29 pg (27-31); MEAN CORPUSCULAR HGB CONC 33 g/dL (33-37); MEAN CORPUSCULAR VOLUME 86.5 fL (80-94); MONOCYTES # (AUTO) 1.3 K/uL (0.8-1.0); MONOCYTES % (AUTO) 8.3 % (1.7-9.3); NEUTROPHILS % (AUTO) 76.2 % (42.2-75.2); PLATELET COUNT (AUTO) 477 K/uL (140-450); RED BLOOD CELL COUNT(AUTO) 2.89 MIL/uL (4.20-6.10); RED CELL DISTRIBUTION WIDTH 12.5 % (11.6-13.7); WHITE BLOOD COUNT (AUTO) 15.7 K/uL (4.8-10.8)
[2022-11-09 07:30] LABS: MAGNESIUM 1.7 mg/dL (1.8-2.4); PHOSPHORUS 3.2 mg/dL (2.5-4.9)
--- NOTE | 2022-11-09 07:31 | NUR ---
ENDORSED PATIENT CARE TO CONCHA MORRISSEY FOR CONTINUITY OF CARE. PATIENT WAS STABLE AT THE TIME OF SHIFT CHANGE. [email or web address]
--- NOTE | 2022-11-09 07:34 | NUR ---
RECEIVED REPORT FROM METROPOLITAN EDITOR NURSE, DAVID, FOR CONTINUITY OF CARE. PT IN BED SLEEPING AT THIS TIME. RESPIRATIONS ARE EVEN AND UNLABORED, PT IS ON 3L 02 VIA NC. NO SIGNS OF DISTRESS NOTED. PT IS ALERT AND ORIENTED X4, ABLE TO FOLLOW COMMANDS, ABLE TO VERBALIZE NEEDS. ABD IS NONTENDER, NONDISTENDED WITH BOWEL SOUNDS PRESENT. PT IS ON CCHO DIET, TOLERATING WELL. PT IS CONTINENT OF BOWEL AND BLADDER. ABLE TO AMBULATE TO REST ROOM INDEPENDENTLY, HOWEVER, DID REMIND PT TO CALL AND ASK FOR HELP WITH AMBULATION DUE TO L-SIDED WEAKNESS FROM PREVIOUS HX OF STROKE. PT HAS IV TO LAC 20G, INTACT AND PATENT. PT HAS WOUND TO R FOOT. NO DRAINAGE NOTED. CALL LIGHT WITHIN REACH. ALL SAFETY MEASURES IN PLACE. WILL CONTINUE TO MONITOR.
[2022-11-09 07:44] LABS: ANION GAP 12.5 (8-16); CARBON DIOXIDE 24.1 mmol/L (21-32); CREATININE 1.2 mg/dL (0.6-1.3); POTASSIUM 3.6 mmol/L (3.5-5.1)
[2022-11-09 08:00] VITALS: BP 159/89
--- NOTE | 2022-11-09 08:00 | NUR ---
Patient's Plan of Care was discussed and reviewed with YUNI: JOSIE
[2022-11-09] MEDS: PANTOPRAZOLE 40 MG INJ VIAL IVP SCH (08:42)
[2022-11-09] MEDS: metFORMIN 850 MG TAB PO SCH ×2 (08:46→17:19)
[2022-11-09] MEDS: METOPROLOL 25 MG TAB PO SCH ×2 (08:47→21:20)
[2022-11-09] MEDS: LOSARTAN 50 MG TAB PO SCH (08:47)
[2022-11-09] MEDS: ATORVASTATIN 20 MG TAB PO SCH (08:48)
[2022-11-09] MEDS: MAGNESIUM OXIDE 400 MG TAB PO SCH (08:48)
[2022-11-09] MEDS: DOCUSATE SODIUM 100 MG GELCAP PO SCH ×2 (08:48→21:00)
--- NOTE | 2022-11-09 09:46 | NUR ---
ASSISTED PT WITH AMBULATING TO REST ROOM. PT TOLERATED WELL.
--- NOTE | 2022-11-09 12:08 | NUR ---
PT BLOOD GLUCOSE WAS 145. NO INSULIN NEEDED PER SLIDING SCALE.
[2022-11-09] MEDS: DRY DRESSING TP SCH (13:23)
[2022-11-09] MEDS: MILD SOAP AND WATER TP SCH (13:24)
--- NOTE | 2022-11-09 15:10 | NUR ---
DID ROUNDS ON PT. PT IN BED SLEEPING AT THIS TIME. RESPIRATIONS ARE EVEN AND UNLABORED.
[2022-11-09 16:00] VITALS: BP 150/83
--- NOTE | 2022-11-09 18:37 | NUR ---
FAMILY AT BEDSIDE, ASKING FOR UPDATE. GAVE UPDATE ON PT. FAMILY STATING THAT PER PT, HE DOES NOT LIKE THE FOOD OFFERED HERE. EDUCATED PT ON THE IMPORTANCE OF EATING, ESPECIALLY DUE TO HIS DM AND INSULIN ADMINISTRATION. FAMILY ASKING IF IT IS OK FOR THEM TO BRING HIM VEGETABLE SOUP FROM HOME. INFORMED FAMILY THAT IT WAS OK, JUST TO LET PT NURSE KNOW. FAMILY AND PT IN AGREEMENT.
--- NOTE | 2022-11-09 19:10 | NUR ---
ENDORSED PT TO STEWARD/STEWARDESS NIGHT NURSE, DAVID, FOR CONTINUITY OF CARE. PT IS STABLE.
--- NOTE | 2022-11-09 19:11 | NUR ---
RECEIVED ENDORSEMENT FROM CONCHA MORRISSEY. PATIENT WAS STABLE DURING SHIFT CHANGE. PATIENT IN BED ASLEEP BUT RESPONDS TO HIS NAME WHEN CALLED. NO NOTED S/S OF PAIN/DISCOMFORT. NO NOTED S/S RESPIRATORY DISTRESS AND CONTINUES ON OXYGEN. PATIENT WAS ABLE FOLLOW INSTRUCTIONS AND RECEIVE PATIENT EDUCATION WITHOUT INCIDENT. SIDE RAILS UP X 2 CALL LIGHT WITHIN REACH. [email or web address]
--- NOTE | 2022-11-09 22:37 | NUR ---
PATIENT IN BED SLEEPING. NO NOTED S/S OF PAIN OR RESPIRATORY DISTRESS. SIDE RAILS UP X 2 CALL LIGHT WITHIN REACH. [email or web address]
[2022-11-10] VITALS: BP 162/93
[2022-11-10] MEDS: GAUZE TP SCH (01:24)
--- NOTE | 2022-11-10 02:36 | NUR ---
PATIENT IN BED SLEEPING. NO NOTED S/S OF PAIN OR RESPIRATORY DISTRESS. SIDE RAILS UP X 2 CALL LIGHT WITHIN REACH. [email or web address]
[2022-11-10] MEDS: NACL 0.9% 1,000 ML IV SCH (02:46)
--- NOTE | 2022-11-10 04:29 | NUR ---
PATIENT IN BED SLEEPING. NO NOTED S/S OF PAIN OR RESPIRATORY DISTRESS. SIDE RAILS UP X 2 CALL LIGHT WITHIN REACH. [email or web address]
[2022-11-10] MEDS: PIPERACILLIN/TAZOBACTAM 3.375 GM in DEXTROSE 5% 50 ML IV SCH (04:46)
[2022-11-10] MEDS: BLOOD GLUCOSE MONITORING 1 DEV DEV FS SCH ×2 (06:29→11:49)
[2022-11-10] MEDS: INSULIN LISPRO SLIDING SCALE 100 UNITS/ML VIAL SUBQ PRN ×2 (06:30→11:51)
--- NOTE | 2022-11-10 07:01 | NUR ---
GAVE ENDORSEMENT OF CARE TO LARY MORRISSEY FOR CONTINUITY OF CARE. PATIENT WAS STABLE DURING SHIFT CHANGE. [email or web address]
--- NOTE | 2022-11-10 07:02 | NUR ---
RECEIVED PT FROM TANK CALIBRATOR NURSE FOR CONTINUITY OF CARE. PT AWAKE AND ALERT X4. ON 3L NC, RESPIRATIONS EVEN AND UNLABORED. CALL LIGHT WITHIN REACH, ALL SAFETY PRECAUTIONS IN PLACE.
[2022-11-10 08:00] VITALS: BP 152/90
[2022-11-10 08:15] LABS: BASOPHILS # (AUTO) 0.1 K/uL (0.00-0.22); BASOPHILS % (AUTO) 0.6 % (0.0-2.0); EOSINOPHILS # (AUTO) 0.3 K/uL (0-0.4); EOSINOPHILS % (AUTO) 2.1 % (0.0-4.0); HEMATOCRIT 26.5 % (36-52); HEMOGLOBIN 8.6 g/dL (12.0-18.0); LYMPHOCYTES % (AUTO) 12.2 % (20.5-51.1); MEAN CORPUSCULAR HEMOGLOBIN 28 pg (27-31); MEAN CORPUSCULAR HGB CONC 32 g/dL (33-37); MEAN CORPUSCULAR VOLUME 86.6 fL (80-94); MONOCYTES # (AUTO) 1.3 K/uL (0.8-1.0); MONOCYTES % (AUTO) 7.7 % (1.7-9.3); NEUTROPHILS # (AUTO) 12.6 K/uL (1.8-7.7); NEUTROPHILS % (AUTO) 77.4 % (42.2-75.2); PLATELET COUNT (AUTO) 522 K/uL (140-450); RED BLOOD CELL COUNT(AUTO) 3.05 MIL/uL (4.20-6.10); RED CELL DISTRIBUTION WIDTH 12.9 % (11.6-13.7); WHITE BLOOD COUNT (AUTO) 16.2 K/uL (4.8-10.8)
[2022-11-10 08:22] LABS: ANION GAP 8.4 (8-16); CREATININE 1.2 mg/dL (0.6-1.3); POTASSIUM 3.4 mmol/L (3.5-5.1)
[2022-11-10] MEDS: METOPROLOL 25 MG TAB PO SCH (08:51)
[2022-11-10] MEDS: metFORMIN 850 MG TAB PO SCH (08:51)
[2022-11-10] MEDS: DOCUSATE SODIUM 100 MG GELCAP PO SCH (08:51)
[2022-11-10] MEDS: LOSARTAN 50 MG TAB PO SCH (08:52)
[2022-11-10] MEDS: ATORVASTATIN 20 MG TAB PO SCH (08:52)
[2022-11-10] MEDS: MAGNESIUM OXIDE 400 MG TAB PO SCH (08:53)
[2022-11-10] MEDS: PANTOPRAZOLE 40 MG INJ VIAL IVP SCH (09:00)
[2022-11-10] MEDS ORDERED: METO25TA PO (09:04)
[2022-11-10] MEDS ORDERED: LEVO-481 PO (09:04)
--- NOTE | 2022-11-10 09:48 | NUR ---
Patient's Plan of Care was discussed and reviewed with PRODUCTION WEIGHER:
[2022-11-10 11:18] VITALS: BP 152/90
--- NOTE | 2022-11-10 11:50 | NUR ---
RECIEVED CALL TO EVALUATE PT FOR HOME O2. hE WENT TO THE BATHROOM i ARRIVED. WHEN HE RETURN 3 MINUTES LATER, O2 SATURATION WAS 84%. WALKING AROUND THE UNIT, THE LOWEST HIS SATURATION WAS 88%.
[2022-11-10] MEDS ORDERED: POTASSIUM CHLORIDE 10 MEQ TABER PO SCH (12:00)
--- NOTE | 2022-11-10 13:15 | NUR ---
IV AND NAME BAND REMOVED. PT SISTER IN LAW AT BEDSIDE. PROVIDED PT AND FAMILY TEACHING REGARDING WOUND CARE AND DISCHARGE. PT VERBALIZED UNDERSTANDING. IV AND NAME BAND REMOVED. ON RA SATURATING 92%. PT STABLE CONDITION DC TO HOME.
== END 2022-11-10 13:15 | disposition home or self-care (01) | DRG 720 ==
LOC: MED 21:00 → MTU 11-04 06:07
DX: A41.9 Sepsis, unspecified organism (principal); N17.0 Acute kidney failure with tubular necrosis; E43 Unspecified severe protein-calorie malnutrition; E11.621 Type 2 diabetes mellitus with foot ulcer; E87.1 Hypo-osmolality and hyponatremia; L03.115 Cellulitis of right lower limb; D75.839 Thrombocytosis, unspecified; E86.0 Dehydration; L97.419 Non-pressure chronic ulcer of right heel and midfoot with unspecified severity; E11.65 Type 2 diabetes mellitus with hyperglycemia; E11.69 Type 2 diabetes mellitus with other specified complication; M86.8X7 Other osteomyelitis, ankle and foot; I10 Essential (primary) hypertension; L97.519 Non-pressure chronic ulcer of other part of right foot with unspecified severity; Z20.822 Contact with and (suspected) exposure to COVID-19; Z68.26 Body mass index [BMI] 26.0-26.9, adult; Z79.84 Long term (current) use of oral hypoglycemic drugs; Z79.899 Other long term (current) drug therapy
CPT/HCPCS: 36415; 71045; 73620; 78315; 80048; 80053; 80202; 80305; 81001; 82140; 82150; 82550; 82553; 82948; 83036; 83605; 83690; 83735; 83874; 83880; 84100; 84439; 84443; 84484; 85025; 85610; 85651; 85730; 86140; 87040; 87070; 87081; 87086; 87186; 93005; 94617; 96361; 96365; 96367; 96372; 96375; 99285; A9503; C9113; J0696; J1815; J2270; J2543; J3370; J7060; Q0092

== ENCOUNTER 2022-11-29 19:05 | Inpatient (IN) | payer MEDICAID ==
[~2022-11-29] VITALS: Ht 167.6 cm; Wt 68.0 kg
[~2022-11-29 19:05] MED LIST: ALOG12.5 PO; ATOR20TA PO; GLIP10TE PO; LEVO-481 PO; LOSA100T2 PO; METF-1139 PO; METO25TA PO; TERB-5 PO
[2022-11-29 19:09] VITALS: BP 129/85
--- NOTE | 2022-11-29 19:45 | NUR ---
BP 79/56. Dr. Laguerre made aware and orders received.
[2022-11-29] MEDS ORDERED: NACL 0.9% 2,000 ML IV ONE (19:50)
--- NOTE | 2022-11-29 19:50 | NUR ---
Lab by bedside
--- NOTE | 2022-11-29 20:02 | NUR ---
Xray by bedside
[2022-11-29 20:10] LABS: BASOPHILS # (AUTO) 0.1 K/uL (0.00-0.22); BASOPHILS % (AUTO) 0.4 % (0.0-2.0); EOSINOPHILS # (AUTO) 0.1 K/uL (0-0.4); EOSINOPHILS % (AUTO) 0.4 % (0.0-4.0); HEMATOCRIT 24.4 % (36-52); HEMOGLOBIN 8.1 g/dL (12.0-18.0); LYMPHOCYTES # (AUTO) 1.3 K/uL (2.0-11.5); MEAN CORPUSCULAR HEMOGLOBIN 28 pg (27-31); MEAN CORPUSCULAR HGB CONC 33 g/dL (33-37); MEAN CORPUSCULAR VOLUME 83.3 fL (80-94); MONOCYTES # (AUTO) 0.8 K/uL (0.8-1.0); MONOCYTES % (AUTO) 5.6 % (1.7-9.3); NEUTROPHILS # (AUTO) 12.2 K/uL (1.8-7.7); NEUTROPHILS % (AUTO) 84.6 % (42.2-75.2); PLATELET COUNT (AUTO) 499 K/uL (140-450); RED BLOOD CELL COUNT(AUTO) 2.94 MIL/uL (4.20-6.10); RED CELL DISTRIBUTION WIDTH 14.1 % (11.6-13.7); WHITE BLOOD COUNT (AUTO) 14.5 K/uL (4.8-10.8)
[2022-11-29] MEDS ORDERED: PIPERACILLIN/TAZOBACTAM 3.375 GM in DEXTROSE 5% 50 ML IV ONE (20:25)
[2022-11-29] MEDS ORDERED: VANCOMYCIN 1,000 MG in DEXTROSE 5% 250 ML IV ONE (20:25)
--- NOTE | 2022-11-29 20:30 | NUR ---
Attempted to collect urine pt unable to urinate at this time. MAICOLD made aware.
[2022-11-29] MEDS ORDERED: PIPERACILLIN/TAZOBACTAM 3.375 GM VIAL IV ONE (20:32)
[2022-11-29 20:43] LABS: ALBUMIN 1.7 g/dL (3.4-5.0); ANION GAP 15.1 (8-16); ASPARTATE AMINOTRANSFERASE 190 U/L (15-37); CARBON DIOXIDE 26.5 mmol/L (21-32); CHLORIDE 97 mmol/L (98-107); CREATININE 1.4 mg/dL (0.6-1.3); GFR ARICAN-AMERICAN 70 mL/min (>90); POTASSIUM 4.6 mmol/L (3.5-5.1); SODIUM SERUM 134 mmol/L (136-145); TOTAL BILIRUBIN 0.3 mg/dL (0.0-1.0); UREA NITROGEN, BLOOD 24 mg/dL (7-18)
[2022-11-29] MEDS ORDERED: VANCOMYCIN 1,000 MG VIAL ONE (21:07)
[2022-11-29 21:11] LABS: GLUCOSE 106 mg/dL (74-106); THYROID STIMULATING HORMONE 7.26 uIU/mL (0.34-3.74)
[2022-11-29] MEDS ORDERED: MORPHINE SULFATE 2 MG/ML SYR IVP PRN (22:25)
--- NOTE | 2022-11-29 22:29 | NUR ---
walked swab to lab.
--- NOTE | 2022-11-29 23:04 | NUR ---
Contacted brother Brownleatha Walker for patients list of medications, as per pt instructions. Per brother, patient had taken due medications prior to coming to ED and he would bring list of medications tomorrow.
[2022-11-29] MEDS: NACL 0.9% 1,000 ML IV SCH (23:41)
--- NOTE | 2022-11-30 00:09 | NUR ---
Pt resting comfortably at this time, denies any pain or discomfort.
[2022-11-30 02:04] LABS: APPEARANCE,URINE CLOUDY (CLEAR); BILIRUBIN,URINE NEGATIVE (NEGATIVE); BLOOD, URINE 1+ (NEGATIVE); COLOR,URINE YELLOW (YELLOW); LEUKOCYTE ESTERASE ,URINE NEGATIVE (NEGATIVE); NITRITE, URINE NEGATIVE (NEGATIVE); PH,URINE 5.5 (5.0-9.0); UGLUCOSE NEGATIVE (NEGATIVE)
--- NOTE | 2022-11-30 02:19 | NUR ---
Report givent to Marianne MORRISSEY
[2022-11-30 02:20] VITALS: BP 157/98
--- NOTE | 2022-11-30 02:20 | NUR ---
RECEIVED PATIENT SANG ULLOA FROM THE ED. PATIENT WAS ALERT AND ORIENTED. CITIZEN OF [place] SPEAKING ONLY. PATIENT WAS ABLE TO GIVE HIS MEDICAL HISTORY TO RN WHO IS CITIZEN OF [place] SPEAKING. OXYGEN 2 LITER ON NASAL CANULA. NO NOTED RESPIRATORY DISTRESS. WOUND ON LEFT HEAL WAS REDRESSED FOR ASSESSMENT. PICTURES IN THE CHART FROM ED. FOOT WAS NOTED WITH BLACK AND DARK PINK SKIN. PATIENT DENIES ANY ANY PAIN AT THIS TIME. PATIENT IS ABLE O FOLLOW VERBAL COMMANDS. PATIENT IS IN DIAPER D/T WEAKNESS BUT CAN CALL FOR ASSISTANCE WITH CALL LIGHT. SIDE RAILS UP X 2 FOR SAFETY AND COMFORT. CALL LIGHT WITHIN REACH. [id number]
[2022-11-30 02:34] LABS: RBC,URINE 0-5 /HPF (0-5)
--- NOTE | 2022-11-30 03:19 | NUR ---
PATIENT STABLE VITALS SIGNS IN NORMAL LIMITS ADMITTED FOR INFECTED WOUND OF THE RIGHT HEEL AND OSTEOMYELITIC NOT COMPLAINING OF PAIN AT THIS TIME
[2022-11-30] MEDS: NACL 0.9% 1,000 ML IV SCH ×3 (06:06→18:35)
--- NOTE | 2022-11-30 06:26 | NUR ---
PATIENT SAY THAT HE DOESN'T REMEMBER HIS HOME MEDICATION AND HIS BROTHER WILL BRING IT THIS AFTERNOON
--- NOTE | 2022-11-30 07:27 | NUR ---
ENDORSED CARE TO CONCHA MORRISSEY FOR CONTINUITY OF CARE, PATIENT WAS STALE DURING SHIFT CHANGE. [id number]
--- NOTE | 2022-11-30 07:28 | NUR ---
RECEIVED REPORT FROM POST SECONDARY PROFESSIONAL NURSE, DAVID, FOR CONTINUITY OF CARE. PT IN BED SLEEPING AT THIS TIME. RESPIRATIONS ARE EVEN AND UNLABORED ON 2L 02 VIA NC. NO SIGNS OF DISTRESS NOTED. PT IS ALERT AND ORIENTED X4, ABLE TO VERBALIZE NEEDS, ABLE TO FOLLOW COMMANDS. ABD IS NONTENDER, NONDISTENDED WITH BOWEL SOUNDS ACTIVE IN ALL QUADRANTS. PT HAS IV TO R AC 22G, AND TO L AC 20G. PT HAS R HEEL ULCER, PRESENT ON ADMISSION. CALL LIGHT WITHIN REACH. ALL SAFETY MEASURES IN PLACE.
[2022-11-30 08:00] VITALS: BP 136/87
[2022-11-30] MEDS ORDERED: VANCOMYCIN PER PHARMACY MC PRN (08:25)
[2022-11-30] MEDS ORDERED: ACETAMINOPHEN 325 MG TAB PO PRN (08:25)
[2022-11-30] MEDS ORDERED: ONDANSETRON 4 MG/2 ML VIAL IM/IVP PRN (08:25)
[2022-11-30] MEDS ORDERED: DOCUSATE SODIUM 100 MG GELCAP PO PRN (08:25)
[2022-11-30] MEDS ORDERED: ZOLPIDEM 5 MG TAB PO PRN (08:25)
[2022-11-30] MEDS ORDERED: HYDROcodone/APAP 7.5/325 MG 1 TAB PO PRN (08:25)
[2022-11-30] MEDS ORDERED: POTASSIUM CHLORIDE 10 MEQ TABER PO PRN (08:25)
--- NOTE | 2022-11-30 08:53 | NUR ---
PATIENT HAS BEEN SCREENED AND CATEGORIZED HIGH NUTRITION RISK. PATIENT WILL BE SEEN WITHIN 1-2 DAYS OF ADMISSION. 11/29/22-12/01/22 CONSULT REQUEST RECEIVED ON 11/30/22 FOR SEPSIS. PATIENT WILL BE SEEN WITHIN 1-2 DAYS. REVIEWED BY ALISON LEY RD Addendum: 11/30/22 at [address] CONSULT DOES NOT MEET HIGH RISK CRITERIA PER HOSPITAL POLICY. PT WILL BE SEEN AND ASSESSED ACCORDING TO THE NUTRITION CARE POLICY. PATIENT HAS BEEN RE-SCREENED AND CATEGORIZED MODERATE NUTRITION RISK. PATIENT WILL BE SEEN WITHIN 3-5 DAYS OF ADMISSION.
[2022-11-30] MEDS ORDERED: GABA100C PO (09:14)
[2022-11-30] MEDS ORDERED: ASPI-1822 PO (09:14)
[2022-11-30] MEDS: PANTOPRAZOLE 40 MG TABEC PO SCH (09:31)
--- NOTE | 2022-11-30 09:32 | NUR ---
ADMINISTERED SCHEDULED MEDICATION. EDUCATED PT ON MEDS ADMINISTERED. PT VERBALIZED UNDERSTANDING.
[2022-11-30 10:14] LABS: CHOL/HDL RATIO 4.4 (1-4.5); FREE T4 (FREE THYROXINE) 0.91 ng/dL (0.76-1.46); MAGNESIUM 1.6 mg/dL (1.8-2.4); PHOSPHORUS 3.1 mg/dL (2.5-4.9)
[2022-11-30] MEDS: VANCOMYCIN 750 MG in DEXTROSE 5% 250 ML IV SCH ×2 (10:19→21:16)
--- NOTE | 2022-11-30 10:24 | NUR ---
WOUND CARE NOTE: WOUND ASSESSMENT DONE ON THIS 47 Y/O PT ADMITTED WITH CHRONIC DIABETIC ULCER TO RIGHT HEELS AND OSTEOMYELITIS. PATIENT IS AAOX4, VERBALIZES NEEDS. PT'S SKIN IS WARM TO TOUCH. PT. ABLE TO TURN AND REPOSITION SELF. PLAN OF CARE PRIMARY NURSE. RECOMMEND PODIATRY CONSULT. - RIGHT HEEL DIABETIC ULCER 7X6CM, WOUND BED 100% BLACK, SOFT TISSUE, NO DRAINGE, MILD FOUL ODOR. NADIRA-WOUND SKIN PEELING,PINK, IN COLOR, PAIN 0/10 RECOMMENDATIONS: - RIGHT HEEL DIABETIC ULCER CLEANSE WITH NS, PAT DRY, APPLY BETADINE SOAKED GAUZE, COVER WITH DRY DRESSING, AND SECURE WITH KERLIX ROLL DAILY AND PRN IF SOILED. -HEEL RAISERS TO RIGHT HEELS WITH OFFLOADING. - PODIATRY CONSULT
--- NOTE | 2022-11-30 10:30 | NUR ---
PT FAMILY BROUGHT IN HOME MEDS, DR CANCINO MADE AWARE. PER DR CANCINO, HE WILL LOOK THEM OVER.
[2022-11-30 11:04] LABS: PROTHROMBIN TIME 10.1 secs (10.8-13.4)
[2022-11-30] MEDS: PIPERACILLIN/TAZOBACTAM 3.375 GM in DEXTROSE 5% 50 ML IV SCH ×2 (12:00→18:35)
--- NOTE | 2022-11-30 14:20 | NUR ---
PT STATING HE IS HAVING DIFFICULTY URINATING. ASKED PT WHEN WAS THE LAST TIME HE URINATED, PT STATED EARLY THIS MORNING. WILL USE BLADDER SCANNER TO CHECK FOR URINE RETENTION.
--- NOTE | 2022-11-30 14:58 | NUR ---
ABD IS DISTENDED, USED BLADDER SCANNER, OVER 999ML OF URINE NOTED. ASKED PT ONCE AGAIN WHEN WAS THE LAST TIME HE URINATED, PT NOW STATING "ITS BEEN OVER A DAY SINCE I HAVE URINATED". ASKED PT WHY DID HE WAIT SO LONG TO REPORT, PT STATED "I DONT KNOW, I JUST DIDN'T". DR CANCINO MADE AWARE. AWAITING REPLY.
--- NOTE | 2022-11-30 15:15 | NUR ---
NEW ORDERS PLACED BY DR CANCINO, FOR JAEGER CATHETER.
--- NOTE | 2022-11-30 15:33 | NUR ---
JAEGER CATHETER PLACED, PT TOLERATED WELL.
[2022-11-30 16:00] VITALS: BP 133/82
[2022-11-30 16:01] LABS: BARBITURATE, URINE NEGATIVE ng/ml (NEG <=200); BENZODIAZEPINE, URINE NEGATIVE ng/mL (NEG <=200); CANNABINOID, URINE NEGATIVE ng/mL (NEG <=50); COCAINE, URINE NEGATIVE ng/mL (NEG <=300); OPIATE, URINE NEGATIVE ng/mL (NEG <=2000); PHENCYCLIDINE SCREEN,URINE NEGATIVE ng/mL (NEG <=25)
--- NOTE | 2022-11-30 16:45 | NUR ---
PT HAD 1350 OUTPUT FROM JAEGER CATHETER. URINE STILL DRAINING.
[2022-11-30] MEDS ORDERED: DEXTROSE 50% 50 ML SYR IVP PRN (16:55)
--- NOTE | 2022-11-30 18:11 | NUR ---
FAMILY AT BEDSIDE, ASKING FOR UPDATE ON PLAN OF CARE. FAMILY INFORMED THAT AT HOME PT DOES NOT LIKE TO DO ANYTHING, HE JUST LAYS ON THE COUCH THE ENTIRE DAY. FAMILY STATES THAT PT DOES NOT SEEM TO CARE ABOUT HIS OWN HEALTH, AND IS NONCOMPLIANT.
--- NOTE | 2022-11-30 18:36 | NUR ---
IV ABX ADMINISTERED BY RN.
--- NOTE | 2022-11-30 19:05 | NUR ---
ENDORSED PT TO ELECTRICAL CAD DESIGNER NURSE, LUCHO, FOR CONTINUITY OF CARE. PT IS STABLE.
--- NOTE | 2022-11-30 19:06 | NUR ---
RECD. RESTING IN BED, AWAKE, A/OX3. RESPIRATION EVEN AND UNLABORED. IV SALINE LOCK AT THE RIGHT AND LEFT AC, BOTH G20, PATENT AND INTACT. NS INFUSING AT 100 ML/HR AT THE RIGHT FOREARM G22. F/C PATENT DRAINING MODERATE AMOUNT OF CLEAR YELLOW URINE. RIGHT FOOT WITH NON-PITTING EDEMA WITH HEEL ULCER COVERED WITH DRESSING DRY AND INTACT. ELEVATED RIGHT LOWER EXTREMITY ON A PILLOWS. ON IV ANTIBIOTICS. DENIES PAIN 0/10.
[2022-11-30 20:00] VITALS: BP 136/87
[2022-11-30] MEDS ORDERED: MAGNESIUM OXIDE 400 MG TAB PO SCH (20:30)
--- NOTE | 2022-11-30 21:00 | NUR ---
MG LEVEL TODAY - 1.6. MEDICATED WITH MAG-OX 400 MG PO PER MD ORDER.
[2022-11-30] MEDS: BLOOD GLUCOSE MONITORING 1 DEV DEV FS SCH (21:09)
--- NOTE | 2022-11-30 21:09 | NUR ---
BS CHECKED - 157. REFUSED INSULIN COVERAGE. EXPLAINED ITS IMPORTANCE BUT STILL REFUSED.
--- NOTE | 2022-11-30 21:16 | NUR ---
RESTING IN BED COMFORTABLY. VANCOMYCIN IVPB INFUSED BY ENRRIQUE ARGUETA.
--- NOTE | 2022-11-30 22:30 | NUR ---
OCCASIONALLY COUGH, VERBALIZED HE HAS ONLY SMALL AMOUNT OF WHITE PHLEGM WHEN HE COUGHED. OFFERED LALITITUSSIN BUT REFUSED.
--- NOTE | 2022-12-01 | NUR ---
SLEEPING COMFORTABLY IN BED. RESPIRATION EVEN AND UNLABORED. CALL LIGHT IN REACH.
[2022-12-01] MEDS: PIPERACILLIN/TAZOBACTAM 3.375 GM in DEXTROSE 5% 50 ML IV SCH ×4 (00:13→21:17)
--- NOTE | 2022-12-01 02:00 | NUR ---
STILL SLEEPING COMFORTABLY IN BED. RESPIRATION EVEN AND UNLABORED.
--- NOTE | 2022-12-01 04:00 | NUR ---
AWAKE, HEALTH TEACHINGS GIVEN ON IMPORTANCE OF DIET ON DIABETES CONTROL. VERBALIZED UNDERSTANDING.
[2022-12-01] MEDS: NACL 0.9% 1,000 ML IV SCH ×2 (05:03→14:25)
--- NOTE | 2022-12-01 06:30 | NUR ---
ABLE TO SLEEP WELL. TOLERATED ALL ANTIBIOTICS ADMINISTERED BY RN THIS SHIFT.
[2022-12-01] MEDS: BLOOD GLUCOSE MONITORING 1 DEV DEV FS SCH ×4 (06:37→21:05)
--- NOTE | 2022-12-01 07:05 | NUR ---
RECEIVED PT FROM BROOMCORN SORTER NURSE FOR CONTINUITY OF CARE. PT IS SLEEPING, VISIBLE CHEST RISE AND FALL. RESPIRATIONS EVEN AND UNLABORED ON RA. IV ON R F/A 20G INFUSING NS @100. CALL LIGHT WITHIN REACH, ALL SAFETY PRECAUTIONS IN PLACE.
[2022-12-01 07:12] LABS: BASOPHILS % (AUTO) 0.4 % (0.0-2.0); EOSINOPHILS # (AUTO) 0.7 K/uL (0-0.4); LYMPHOCYTES # (AUTO) 1.3 K/uL (2.0-11.5); LYMPHOCYTES % (AUTO) 13.2 % (20.5-51.1); MEAN CORPUSCULAR HEMOGLOBIN 28 pg (27-31); MEAN CORPUSCULAR HGB CONC 33 g/dL (33-37); MEAN CORPUSCULAR VOLUME 83.1 fL (80-94); MONOCYTES # (AUTO) 0.9 K/uL (0.8-1.0); MONOCYTES % (AUTO) 8.5 % (1.7-9.3); NEUTROPHILS # (AUTO) 7.2 K/uL (1.8-7.7); NEUTROPHILS % (AUTO) 70.9 % (42.2-75.2); PLATELET COUNT (AUTO) 448 K/uL (140-450); RED BLOOD CELL COUNT(AUTO) 2.34 MIL/uL (4.20-6.10); RED CELL DISTRIBUTION WIDTH 14.4 % (11.6-13.7); WHITE BLOOD COUNT (AUTO) 10.1 K/uL (4.8-10.8)
[2022-12-01 07:15] LABS: HEMATOCRIT 19.5 % (36-52); HEMOGLOBIN 6.4 g/dL (12.0-18.0)
[2022-12-01 07:19] LABS: ANION GAP 11.6 (8-16); CARBON DIOXIDE 24.5 mmol/L (21-32); CREATININE 1.4 mg/dL (0.6-1.3); POTASSIUM 4.1 mmol/L (3.5-5.1)
--- NOTE | 2022-12-01 07:35 | NUR ---
Patient's Plan of Care was discussed and reviewed with SENIOR CONSTRUCTION ESTIMATOR:
[2022-12-01 08:00] VITALS: BP 149/91
[2022-12-01 08:08] LABS: T3 UPTAKE 31 % (24-39)
[2022-12-01] MEDS: PANTOPRAZOLE 40 MG TABEC PO SCH (08:55)
--- NOTE | 2022-12-01 09:47 | NUR ---
VANCOMYCIN TROUGH 19.3, DR GRAHAM MADE AWARE.
--- NOTE | 2022-12-01 09:52 | NUR ---
PER PHARMACIST DIONY JUARES TO GIVE VANCOMYCIN DESPITE TROUGH, DUE TO OSTEOMYELITIS.
[2022-12-01] MEDS: VANCOMYCIN 750 MG in DEXTROSE 5% 250 ML IV SCH (10:33)
[2022-12-01] MEDS: INSULIN LISPRO SLIDING SCALE 100 UNITS/ML VIAL SUBQ PRN ×2 (11:01→17:15)
--- NOTE | 2022-12-01 11:30 | NUR ---
DC PLANNING ASSESSMENT COMPLETE PLEASE REFER TO ASSESSMENT FOR ADDITIONAL DETAILS PT REPORTS DC PLAN IS TO RETURN HOME WITH FAMILY PROVIDING TRANSPORTATION WHEN MEDICALLY STABLE. Addendum: 12/02/22 at 0847 by Andres MORENO Amended: Links added.
--- NOTE | 2022-12-01 13:42 | NUR ---
12/01/22 RD INITIAL ASSESSMENT COMPLETED PLEASE REFER TO NUTRITION ASSESSMENT UNDER CARE ACTIVITY FOR ESTIMATED NUTRITIONAL NEEDS. 1. MONITOR NPO STATUS 2. WHEN/IF MEDICALLY APPROPRIATE RECOMMEND [id number] DIET WITH GLUCERNA DAILY TOLERATED -PROVIDES 220 KCAL, 10G PROTEIN 3. RECOMMEND PROSOURCE BID FOR WOUNDS -PROVIDES 30GM PROTEIN DAILY 4. MONITOR GI, PO INTAKE, AND LAB VALUES. 5. RD TO FOLLOW-UP 2-3 DAYS, HIGH RISK REVIEWED BY ALISON LEY RD
[2022-12-01 16:00] VITALS: BP 143/85
--- NOTE | 2022-12-01 19:10 | NUR ---
ENDORSED PT TO FINANCIAL REPORTING MANAGER NURSE FOR CONTINUITY OF CARE. PT IS STABLE.
--- NOTE | 2022-12-01 20:05 | NUR ---
PATIENT AWAKE ALERT VERBALLY RESPONSIVE. ABLE TO VERBALIZED HIS NEEDS IN FIJIAN. NO SOB NOTED ON ROOM AIR. JAEGER CATHETER DRAINING CLEAR YELLOW URINE. NO COMPLAINTS OF PAIN AT THIS TIME. CALL LIGHT WITHIN REACH.
--- NOTE | 2022-12-01 21:05 | NUR ---
CHECKED BLOOD SUGAR 143 NO INSULIN COVERAGE NEEDED.
[2022-12-01 21:22] LABS: HEMATOCRIT 23.5 % (36-52); HEMOGLOBIN 7.9 g/dL (12.0-18.0)
--- NOTE | 2022-12-01 22:10 | NUR ---
BEDSIDE DEBRIDEMENT ON THE RIGHT HEEL DONE BY DR. CELAYA COLLECTED SPECIMEN FOR BIOPSY, SENT TO LAB.
[2022-12-01] MEDS: guaiFENesin DM 200/20 MG-10 ML 10 ML UDC PO PRN (22:32)
[2022-12-02] MEDS: PIPERACILLIN/TAZOBACTAM 3.375 GM in DEXTROSE 5% 50 ML IV SCH ×4 (00:18→18:27)
[2022-12-02] MEDS: NACL 0.9% 1,000 ML IV SCH (00:25)
[2022-12-02 04:00] VITALS: BP 160/101
--- NOTE | 2022-12-02 05:02 | NUR ---
PATIENT BP-160/101 P-[address] GRAHAM AWAITING FOR ANSWER.
--- NOTE | 2022-12-02 06:11 | NUR ---
DR. GRAHAM REPLIED WITH ORDERS, NOTED AND CARRIED OUT.
[2022-12-02] MEDS ORDERED: hydrALAZINE 10 MG TAB PO SCH (06:15)
[2022-12-02] MEDS: INSULIN LISPRO SLIDING SCALE 100 UNITS/ML VIAL SUBQ PRN ×3 (06:46→15:49)
[2022-12-02] MEDS: BLOOD GLUCOSE MONITORING 1 DEV DEV FS SCH ×4 (06:46→20:39)
[2022-12-02 06:49] LABS: BASOPHILS % (AUTO) 0.4 % (0.0-2.0); EOSINOPHILS # (AUTO) 0.8 K/uL (0-0.4); EOSINOPHILS % (AUTO) 7.4 % (0.0-4.0); HEMATOCRIT 22.2 % (36-52); HEMOGLOBIN 7.6 g/dL (12.0-18.0); LYMPHOCYTES # (AUTO) 1.4 K/uL (2.0-11.5); LYMPHOCYTES % (AUTO) 13.8 % (20.5-51.1); MEAN CORPUSCULAR HEMOGLOBIN 28 pg (27-31); MEAN CORPUSCULAR HGB CONC 34 g/dL (33-37); MEAN CORPUSCULAR VOLUME 83.2 fL (80-94); MONOCYTES # (AUTO) 0.9 K/uL (0.8-1.0); MONOCYTES % (AUTO) 8.5 % (1.7-9.3); NEUTROPHILS # (AUTO) 7.2 K/uL (1.8-7.7); NEUTROPHILS % (AUTO) 69.9 % (42.2-75.2); PLATELET COUNT (AUTO) 478 K/uL (140-450); RED BLOOD CELL COUNT(AUTO) 2.67 MIL/uL (4.20-6.10); RED CELL DISTRIBUTION WIDTH 14.3 % (11.6-13.7); WHITE BLOOD COUNT (AUTO) 10.3 K/uL (4.8-10.8)
--- NOTE | 2022-12-02 07:05 | NUR ---
GAVE REPORT TO MORNING NURSE FOR CONTINUITY OF CARE.
--- NOTE | 2022-12-02 07:06 | NUR ---
RECEIVED PT FROM [facility] SHIFT NURSE FOR CONTINUITY OF CARE. PT IN BED SLEEPING. VISIBLE CHEST RISE/ FALL. RESPIRATIONS EVEN AND UNLABORED ON RA. NO DISTRESS NOTED. CALL LIGHT WITHIN REACH, ALL SAFETY PRECAUTIONS IN PLACE.
[2022-12-02 07:57] LABS: ANION GAP 12.6 (8-16); CARBON DIOXIDE 23.2 mmol/L (21-32); CREATININE 1.3 mg/dL (0.6-1.3); POTASSIUM 3.8 mmol/L (3.5-5.1)
[2022-12-02 08:00] VITALS: BP 152/96
--- NOTE | 2022-12-02 08:00 | NUR ---
Patient's Plan of Care was discussed and reviewed with MERCHANDISE MARKER: LARY
[2022-12-02] MEDS ORDERED: FUROSEMIDE 20 MG/2 ML VIAL IVP SCH (08:45)
[2022-12-02] MEDS: PANTOPRAZOLE 40 MG TABEC PO SCH (09:23)
[2022-12-02] MEDS: SODIUM FERRIC GLUCONATE 125 MG in NACL 0.9% 100 ML IV SCH (10:45)
[2022-12-02] MEDS: GAUZE TP SCH (13:14)
--- NOTE | 2022-12-02 14:57 | NUR ---
MAKING ROUNDS, PT RESTING IN BED. CALL LIGHT WITHIN REACH.
[2022-12-02 15:06] LABS: FOLIC ACID 12.5 ng/mL (>3.0)
[2022-12-02 16:00] VITALS: BP 154/92
--- NOTE | 2022-12-02 19:11 | NUR ---
ENDORSED PT TO ALARM INSTALLER NURSE FOR CONTINUITY OF CARE. PT IS STABLE.
--- NOTE | 2022-12-02 19:54 | NUR ---
PATIENT LYING IN BED APPEARS TO BE COMFORTABLE WATCHING TV. NO S/S OF RESPIRATORY DISTRESS. DENIES PAIN. CALL LIGHT ON EASY REACH. BED WHEELS LOCK IN LOW POSITION. IV SITE TO LEFT AND RIGHT FOREARM SALINE LOCK. WILL CONTINUE TO MONITOR.
[2022-12-02 20:00] VITALS: BP 158/93
[2022-12-02] MEDS: LOSARTAN 25 MG TAB PO SCH (20:34)
[2022-12-02] MEDS: carvediloL 6.25 MG TAB PO SCH (20:35)
--- NOTE | 2022-12-03 | NUR ---
ZOSYN IVPB ADMINISTERED ORDERED.
--- NOTE | 2022-12-03 00:30 | NUR ---
STOOL SPECIMEN COLLECTED FOR OCCULT BLOOD, SENT TO LAB.
[2022-12-03 04:00] VITALS: BP 168/93
[2022-12-03] MEDS: PIPERACILLIN/TAZOBACTAM 3.375 GM in DEXTROSE 5% 50 ML IV SCH ×6 (06:07→23:18)
[2022-12-03 06:15] LABS: BASOPHILS # (AUTO) 0.1 K/uL (0.00-0.22); BASOPHILS % (AUTO) 0.5 % (0.0-2.0); EOSINOPHILS # (AUTO) 0.6 K/uL (0-0.4); EOSINOPHILS % (AUTO) 5.3 % (0.0-4.0); HEMATOCRIT 22.2 % (36-52); HEMOGLOBIN 7.4 g/dL (12.0-18.0); LYMPHOCYTES # (AUTO) 1.5 K/uL (2.0-11.5); MEAN CORPUSCULAR HEMOGLOBIN 28 pg (27-31); MEAN CORPUSCULAR HGB CONC 33 g/dL (33-37); MEAN CORPUSCULAR VOLUME 82.9 fL (80-94); MONOCYTES % (AUTO) 8.6 % (1.7-9.3); NEUTROPHILS # (AUTO) 8.2 K/uL (1.8-7.7); NEUTROPHILS % (AUTO) 72.6 % (42.2-75.2); PLATELET COUNT (AUTO) 522 K/uL (140-450); RED BLOOD CELL COUNT(AUTO) 2.67 MIL/uL (4.20-6.10); RED CELL DISTRIBUTION WIDTH 14.2 % (11.6-13.7); WHITE BLOOD COUNT (AUTO) 11.3 K/uL (4.8-10.8)
[2022-12-03] MEDS: INSULIN LISPRO SLIDING SCALE 100 UNITS/ML VIAL SUBQ PRN ×4 (06:31→20:33)
[2022-12-03] MEDS: BLOOD GLUCOSE MONITORING 1 DEV DEV FS SCH ×4 (06:31→20:28)
[2022-12-03 06:36] LABS: ANION GAP 14.3 (8-16); CARBON DIOXIDE 23.3 mmol/L (21-32); CREATININE 1.3 mg/dL (0.6-1.3); POTASSIUM 3.6 mmol/L (3.5-5.1)
--- NOTE | 2022-12-03 07:05 | NUR ---
RECEIVED REPORT FROM KELLER MACHINE OPERATOR NURSE FOR CONTINUITY OF CARE. PT STABLE AT THIS TIME.
--- NOTE | 2022-12-03 07:18 | NUR ---
GAVE REPORT TO AM NURSE FOR CONTINUITY OF CARE.
[2022-12-03 08:00] VITALS: BP 154/94
[2022-12-03] MEDS: ECOTRIN 81 MG TABEC PO SCH (08:39)
[2022-12-03] MEDS: carvediloL 6.25 MG TAB PO SCH (08:40)
[2022-12-03] MEDS: LOSARTAN 25 MG TAB PO SCH ×2 (08:40→20:29)
[2022-12-03] MEDS: ATORVASTATIN 20 MG TAB PO SCH (08:40)
[2022-12-03] MEDS: PANTOPRAZOLE 40 MG TABEC PO SCH (08:40)
[2022-12-03] MEDS: SODIUM FERRIC GLUCONATE 125 MG in NACL 0.9% 100 ML IV SCH (09:16)
[2022-12-03] MEDS: GAUZE TP SCH (13:05)
[2022-12-03 16:00] VITALS: BP 131/81
--- NOTE | 2022-12-03 19:28 | NUR ---
ENDORSED TO FUEL EFFICIENT AIRCRAFT DESIGNER NURSE FOR CONTINUITY OF CARE. PT STABLE AT THIS TIME.
--- NOTE | 2022-12-03 19:30 | NUR ---
RECEIVED PATIENT LYING ON THE BED, NO SIGNS OF DISTRESS NOTED, DENIES PAIN, FAMILY AT BEDSIDE. CALL LIGHT WITHIN REACH.
[2022-12-03 20:00] VITALS: BP 136/78
[2022-12-03] MEDS: carvediloL 12.5 MG TAB PO SCH (20:29)
--- NOTE | 2022-12-03 20:30 | NUR ---
PATIENT'S BLOOD SUGAR IS 190 MG/DL, 2 UNITS HUMALOG GIVEN ORDERED. SCHEDULED MEDICATIONS GIVEN ORDERED. ALL SAFETY MEASURES MAINTAINED.
--- NOTE | 2022-12-03 21:53 | NUR ---
PATIENT IS AWAKE, DENIES PAIN, RIGHT HEEL WITH CDI DRESSING, FOOT ELEVATED WITH PILLOW. CALL LIGHT WITHIN REACH.
--- NOTE | 2022-12-03 23:18 | NUR ---
SCHEDULED IV ANTIBIOTIC GIVEN ORDERED. PATIENT DENIES PAIN, BREATHING EVEN AND NON LABORED ON ROOM AIR. CALL LIGHT WITHIN REACH.
[2022-12-04 04:00] VITALS: BP 150/82
[2022-12-04] MEDS: PIPERACILLIN/TAZOBACTAM 3.375 GM in DEXTROSE 5% 50 ML IV SCH ×3 (05:18→17:54)
--- NOTE | 2022-12-04 05:18 | NUR ---
PATIENT IS ASLEEP, BREATHING EVEN AND NON LABORED. SCHEDULED IV ANTIBIOTIC GIVEN ORDERED, CALL LIGHT WITHIN REACH.
--- NOTE | 2022-12-04 06:30 | NUR ---
BLOOD SUGAR IS 171 MG/DL, INSULIN COVERAGE GIVEN ORDERED.
[2022-12-04] MEDS: BLOOD GLUCOSE MONITORING 1 DEV DEV FS SCH ×4 (06:31→20:59)
[2022-12-04] MEDS: INSULIN LISPRO SLIDING SCALE 100 UNITS/ML VIAL SUBQ PRN ×4 (06:32→21:00)
[2022-12-04 06:35] LABS: BASOPHILS % (AUTO) 0.5 % (0.0-2.0); EOSINOPHILS # (AUTO) 0.6 K/uL (0-0.4); EOSINOPHILS % (AUTO) 7.1 % (0.0-4.0); HEMATOCRIT 22.4 % (36-52); HEMOGLOBIN 7.5 g/dL (12.0-18.0); LYMPHOCYTES # (AUTO) 2.1 K/uL (2.0-11.5); LYMPHOCYTES % (AUTO) 23.2 % (20.5-51.1); MEAN CORPUSCULAR HEMOGLOBIN 28 pg (27-31); MEAN CORPUSCULAR HGB CONC 33 g/dL (33-37); MEAN CORPUSCULAR VOLUME 82.9 fL (80-94); MONOCYTES # (AUTO) 0.9 K/uL (0.8-1.0); NEUTROPHILS # (AUTO) 5.4 K/uL (1.8-7.7); NEUTROPHILS % (AUTO) 59.2 % (42.2-75.2); PLATELET COUNT (AUTO) 550 K/uL (140-450); RED CELL DISTRIBUTION WIDTH 14.7 % (11.6-13.7)
--- NOTE | 2022-12-04 07:03 | NUR ---
ENDORSED PATIENT TO DAY NURSE FOR CONTINUITY OF CARE. PATIENT IN STABLE CONDITION.
--- NOTE | 2022-12-04 07:05 | NUR ---
RECEIVED REPORT FROM HEAD LINEMAN NURSE FOR CONTINUITY OF CARE. PT STABLE AT THIS TIME.
[2022-12-04 08:00] VITALS: BP 150/84
[2022-12-04] MEDS: SODIUM FERRIC GLUCONATE 125 MG in NACL 0.9% 100 ML IV SCH (09:03)
[2022-12-04] MEDS: ECOTRIN 81 MG TABEC PO SCH (09:03)
[2022-12-04] MEDS: carvediloL 12.5 MG TAB PO SCH ×2 (09:03→20:59)
[2022-12-04] MEDS: ATORVASTATIN 20 MG TAB PO SCH (09:04)
[2022-12-04] MEDS: PANTOPRAZOLE 40 MG TABEC PO SCH (09:04)
[2022-12-04] MEDS: LOSARTAN 25 MG TAB PO SCH ×2 (09:04→20:59)
[2022-12-04 09:05] LABS: ANION GAP 13.1 (8-16); CARBON DIOXIDE 24.1 mmol/L (21-32); CREATININE 0.6 mg/dL (0.6-1.3); POTASSIUM 4.2 mmol/L (3.5-5.1)
[2022-12-04] MEDS: GAUZE TP SCH (12:29)
--- NOTE | 2022-12-04 13:00 | NUR ---
DRESSING CHANGED ON PTS RIGHT FOOT. PT COMPLAINS OF NO PAIN AT THIS TIME.
[2022-12-04 16:00] VITALS: BP 149/79
--- NOTE | 2022-12-04 16:46 | NUR ---
12/04/22 RD FOLLOW UP COMPLETED. PLEASE REFER TO NUTRITION ASSESSMENT UNDER CARE ACTIVITY FOR ESTIMATED NUTRITIONAL NEEDS. 1. CONTINUE WITH [facility] DIET. 2. RECOMMEND GLUCERNA DAILY TOLERATED -PROVIDES 220 KCAL, 10G PROTEIN 3. RECOMMEND PROSOURCE BID FOR WOUNDS -PROVIDES 120 KCAL, 30GM PROTEIN DAILY 4. MONITOR PO INTAKE AND WOUNDS 5. RD TO FOLLOW-UP IN 2-3 DAYS PATIENT IS HIGH RISK. BELINDA PEACOCK RD
--- NOTE | 2022-12-04 19:25 | NUR ---
ENDORSED TO SHED HAND NURSE FOR CONTINUITY OF CARE. PT STABLE AT THIS TIME.
--- NOTE | 2022-12-04 19:26 | NUR ---
RECEIVED REPORT FROM DAY SHIFT NURSE SPENSER FOR CONTINUITY OF CARE. PT AWAKE, WITH BROTHER AT BEDSIDE. RESPIRATIONS EVEN AND UNLABORED ON 2L NC. DENIES PAIN. JAEGER CATHETER IN PLACE AND DRAINING TO GRAVITY. POC DISCUSSED. REPORT GIVEN TO ENRRIQUE TANNER. CALL LIGHT WITHIN REACH. SAFETY PRECAUTIONS IN PLACE. Addendum: 12/05/22 at 0106 by Daniel Sandoval LVN RIGHT HEEL COVERED WITH BANDAGE, DRY AND INTACT.
[2022-12-04 20:00] VITALS: BP 141/72
--- NOTE | 2022-12-04 21:10 | NUR ---
ADMINISTERED DUE MEDS. USED SMUDGER [id number] TO EXPLAIN MEDS AND COMMUNICATE WITH PT. PT VERBALIZED UNDERSTANDING.
[2022-12-05] MEDS ORDERED: PIPERACILLIN/TAZOBACTAM 3.375 GM in DEXTROSE 5% 50 ML IV SCH ×2
[2022-12-05 06:31] LABS: BASOPHILS % (AUTO) 0.5 % (0.0-2.0); EOSINOPHILS # (AUTO) 0.7 K/uL (0-0.4); EOSINOPHILS % (AUTO) 7.9 % (0.0-4.0); HEMATOCRIT 21.7 % (36-52); HEMOGLOBIN 7.2 g/dL (12.0-18.0); LYMPHOCYTES # (AUTO) 2.2 K/uL (2.0-11.5); LYMPHOCYTES % (AUTO) 25.8 % (20.5-51.1); MEAN CORPUSCULAR HEMOGLOBIN 28 pg (27-31); MEAN CORPUSCULAR HGB CONC 33 g/dL (33-37); MEAN CORPUSCULAR VOLUME 83.9 fL (80-94); MONOCYTES # (AUTO) 0.8 K/uL (0.8-1.0); MONOCYTES % (AUTO) 9.6 % (1.7-9.3); NEUTROPHILS # (AUTO) 4.8 K/uL (1.8-7.7); NEUTROPHILS % (AUTO) 56.2 % (42.2-75.2); PLATELET COUNT (AUTO) 592 K/uL (140-450); RED BLOOD CELL COUNT(AUTO) 2.58 MIL/uL (4.20-6.10); RED CELL DISTRIBUTION WIDTH 14.3 % (11.6-13.7); WHITE BLOOD COUNT (AUTO) 8.6 K/uL (4.8-10.8)
[2022-12-05] MEDS: BLOOD GLUCOSE MONITORING 1 DEV DEV FS SCH ×4 (06:31→21:24)
[2022-12-05] MEDS: INSULIN LISPRO SLIDING SCALE 100 UNITS/ML VIAL SUBQ PRN ×4 (06:31→21:27)
--- NOTE | 2022-12-05 06:32 | NUR ---
BLOOD SUGAR CHECK DONE. SLIDING SCALE INSULIN ADMINISTERED. SNACKS GIVEN. PT DENIES PAIN. NO SOB. NO DISTRESS NOTED. SAFETY PRECAUTIONS REMAINED IN PLACE.
--- NOTE | 2022-12-05 07:09 | NUR ---
GAVE BEDSIDE REPORT TO DAY SHIFT NURSE MARQUES FOR CONTINUITY OF CARE. PT IS STABLE.
[2022-12-05 08:00] VITALS: BP 141/82
[2022-12-05 08:22] LABS: ANION GAP 12.4 (8-16); CARBON DIOXIDE 25.3 mmol/L (21-32); CREATININE 1.2 mg/dL (0.6-1.3); POTASSIUM 3.7 mmol/L (3.5-5.1)
[2022-12-05] MEDS: SODIUM FERRIC GLUCONATE 125 MG in NACL 0.9% 100 ML IV SCH (09:47)
[2022-12-05] MEDS: PANTOPRAZOLE 40 MG TABEC PO SCH (09:50)
[2022-12-05] MEDS: carvediloL 12.5 MG TAB PO SCH ×2 (09:51→21:28)
[2022-12-05] MEDS: ATORVASTATIN 20 MG TAB PO SCH (09:51)
[2022-12-05] MEDS: LOSARTAN 25 MG TAB PO SCH ×2 (09:52→21:29)
[2022-12-05] MEDS: ECOTRIN 81 MG TABEC PO SCH (09:52)
--- NOTE | 2022-12-05 10:29 | NUR ---
WOUND CARE NOTE: RIGHT HEEL S/P DEBRIDEMENT 5X6X1.5CM, WOUND BED 100%HERRERA,YELLOW SOFT TISSUE, NO DRAINAGE, NO ODOR. NADIRA-WOUND SKIN DRY,INTACT PAIN 0/10. PENDING BONE BIOPSY REVIEWED BY DR. CELAYA.
[2022-12-05] MEDS: PIPERACILLIN/TAZOBACTAM 3.375 GM in DEXTROSE 5% 50 ML IV SCH ×2 (12:12→17:38)
[2022-12-05] MEDS: GAUZE TP SCH (12:12)
[2022-12-05 16:00] VITALS: BP 133/87
--- NOTE | 2022-12-05 16:28 | NUR ---
DC PLANNING A 47 Y.O.MALE PATENT ADMITTED FOR CELLULITIS AND OSTEOMYELITIS OF RIGHT FOOT,SEPSIS,P.EDEMA ,HYPOGLYCEMIA, DEHYDRATION ON 11/29/22.WAS JUST DISCHARGED AT [facility] 3-4 WEEKS AGO BANKING [place].HX OF HTN,DM,CVA WITH RIGHT SIDED DEFICIT,AND HYPERLIPIDEMIA.MRSA AND BLOOD CULTURE NO GROWTH.ON ZOSYN.CARDIO, PODIATRY AND I&D FOLLOWING.DC PLAN-TO SNF FOR KNOT TIER ABX THERAPY THEN HOME ONCE ABX IS COMPLETED.CM TO FOLLOW. Addendum: 12/07/22 at 1245 by Nereida Cardenas RN DC PLANNING: CM EXPLAIN TO PATIENT THAT BECAUSE OF HIS INSURANCE MEDICAL RESTRICTED , UNABLE TO SEND HIM TO SNF OR HOME HEALTH NURSE, HOWEVER [facility] IS WILLING TO HELP TO DELIVER THE MEDS AND TEACH PATIENT TO SELF ADMINISTER OR FAMILY MEMBER. CM SPOKE WITH PATIENT REGARDING THE IV ABX FOR 6 WEEKS, PER PATIENT LIVES WITH HIS BROTHER AND SISTER AND CAN HELP HIM TO ADMINISTER HIS IV ABX. FAXED THE ORDER TO [facility]. CM TO FOLLOW Addendum: 12/07/22 at 1509 by Nereida Cardenas RN DC PLANNING: RECEIVED A CALL FROM FELIX AT [facility] STATED THEY ARE UNABLE TO FIND A NURSE TO TEACH A PATIENT. HOWEVER IF MD AGREES TO GIVE A CONTINUOUS INFUSION WITH SPECIAL TYPE OF INFUSION PUMP. CM PROVIDE DR CRUZ'S NUMBER AND WILL DELIVER THE MEDS AT THE HOSPITAL AND PRIMARY RN WILL TEACH THE PATIENT AND FAMILY AND ALSO FOR PICC LINE DRESSING CHANGE PATIENT WILL COME TO THE ER FOR PICC DRESSING CHANGE. CM TO FOLLOW.
--- NOTE | 2022-12-05 19:20 | NUR ---
FOUND PT ON A NASAL CANNULA RUNNING AT 3 LITERS, DURING ADMINISTRATION TREATMENT TO PT IN A BED. PT HAD CANNULA OFF OF HIS FACE, WAS SATURATING 97%, I ASSESSED THE PT, BREATH SOUNDS WERE CLEAR BILATERALLY IN THE APICES, SLIGHT COARSE CRACKLES IN THE BASES. DURING MY ASSESSMENT I TOOK THE CANNULA OFF THE PATIENT, AND WAS ABLE TO MONITOR HIM FOR 10 MINS. THE PT MAINTAINED SATURATION ABOVE 95% AND THERE WAS NO INCREASED WORK OF BREATHING, PATIENT PLACED ON ROOM AIR AT THIS TIME.
--- NOTE | 2022-12-05 19:38 | NUR ---
ENDORSE PATIENT IN STABLE CONDITION TO PM SHIFT NURSE WHILE PIV R. FOREARM, RAC & LAC SALINE LOCK,
--- NOTE | 2022-12-05 19:39 | NUR ---
RECEIVED ENDORSEMENT FROM DAY SHIFT NURSE MARQUES FOR CONTINUITY OF CARE. PT IS AWAKE, ALERT AND VERBALIZED NEEDS. RIGHT HEEL IS COVERED BY CLEAN DRESSING, NO COMPLAINTS OF PAIN OR DISCOMFORT. IV SITES ON RIGHT FOREARM 22G, RIGHT AC 22G, LEFT AC 20G ARE IN PLACE AND INTACT.
[2022-12-05 20:00] VITALS: BP 142/85
--- NOTE | 2022-12-05 20:30 | NUR ---
DR. HOLLAND CLEANSED RIGHT HEEL WOUND AND CHANGE DRESSING. DR. HOLLAND ORDER PICC LINE TO BE USED FOR IV ANTIBIOTIC HERE AND CONTINUE TO SNIF. HE ALSO ORDER SANTYL OINTMENT TO APPLY DAILY TO WOUND WHILE IN THIS HOSPITAL AND TO CONTINUE TO SNIF. PT IS ON STABLE CONDITION, AWAKE AND ALERT. BROTHER AND OTHER 2 FAMILY MEMBERS ARE ON BED SIDES.
--- NOTE | 2022-12-05 21:27 | NUR ---
PT BLOOD SUGAR CHECKED = 185 = 2 UNITS HUMOLOG INSULIN ADMINISTERED.
[2022-12-06] MEDS: PIPERACILLIN/TAZOBACTAM 3.375 GM in DEXTROSE 5% 50 ML IV SCH ×5 (00:39→23:48)
[2022-12-06 04:00] VITALS: BP 156/94
[2022-12-06] MEDS: BLOOD GLUCOSE MONITORING 1 DEV DEV FS SCH ×4 (06:38→21:21)
[2022-12-06] MEDS: INSULIN LISPRO SLIDING SCALE 100 UNITS/ML VIAL SUBQ PRN ×3 (06:40→16:42)
--- NOTE | 2022-12-06 06:40 | NUR ---
BLOOD SUGAR CHECKED = 151 = 2 UNITS HUMALOG INSULIN ADMINISTERED ORDER.
[2022-12-06 07:29] LABS: BASOPHILS # (AUTO) 0.1 K/uL (0.00-0.22); BASOPHILS % (AUTO) 0.7 % (0.0-2.0); EOSINOPHILS # (AUTO) 0.6 K/uL (0-0.4); EOSINOPHILS % (AUTO) 6.7 % (0.0-4.0); HEMATOCRIT 21.2 % (36-52); LYMPHOCYTES # (AUTO) 2.5 K/uL (2.0-11.5); LYMPHOCYTES % (AUTO) 27.6 % (20.5-51.1); MEAN CORPUSCULAR HEMOGLOBIN 28 pg (27-31); MEAN CORPUSCULAR HGB CONC 33 g/dL (33-37); MEAN CORPUSCULAR VOLUME 83.6 fL (80-94); MONOCYTES # (AUTO) 0.8 K/uL (0.8-1.0); MONOCYTES % (AUTO) 9.2 % (1.7-9.3); NEUTROPHILS # (AUTO) 5.1 K/uL (1.8-7.7); NEUTROPHILS % (AUTO) 55.8 % (42.2-75.2); PLATELET COUNT (AUTO) 630 K/uL (140-450); RED BLOOD CELL COUNT(AUTO) 2.54 MIL/uL (4.20-6.10); RED CELL DISTRIBUTION WIDTH 14.6 % (11.6-13.7); WHITE BLOOD COUNT (AUTO) 9.1 K/uL (4.8-10.8)
[2022-12-06 07:34] LABS: ANION GAP 10.1 (8-16); CARBON DIOXIDE 27.9 mmol/L (21-32); CREATININE 1.3 mg/dL (0.6-1.3)
[2022-12-06 08:00] VITALS: BP 158/94
[2022-12-06] MEDS: SODIUM FERRIC GLUCONATE 125 MG in NACL 0.9% 100 ML IV SCH (08:20)
[2022-12-06] MEDS: ECOTRIN 81 MG TABEC PO SCH (08:21)
[2022-12-06] MEDS: carvediloL 12.5 MG TAB PO SCH ×2 (08:22→21:19)
[2022-12-06] MEDS: PANTOPRAZOLE 40 MG TABEC PO SCH (08:22)
[2022-12-06] MEDS: LOSARTAN 25 MG TAB PO SCH ×2 (08:23→21:20)
[2022-12-06] MEDS: ATORVASTATIN 20 MG TAB PO SCH (08:23)
[2022-12-06] MEDS ORDERED: COMMUNICATION ORDER MC SCH (09:00)
[2022-12-06] MEDS: GAUZE TP SCH (13:15)
[2022-12-06 16:00] VITALS: BP 147/85
--- NOTE | 2022-12-06 19:24 | NUR ---
ENDORSE PATIENT IN STABLE CONDITION WHILE NEW PICC DOUBLE LUMEN READY FOR USE AT R. UPPER ARM. PATIENT IS READY FOR 6 WEEKS IV ANTIBIOTIC THERAPY
--- NOTE | 2022-12-06 19:25 | NUR ---
RECEIVED ENDORSEMENT FROM MARQUES OSUNA, PATIENT WAS STABLE DURING SHIFT CHANGE. PATIENT IN BED WITH BROTHER AT BEDSIDE. PATIENT INQUIRED ABOUT USING THE BEDSIDE COMMODE BUT STILL HAD JAEGER CATH. NURSING ENCOURAGED TO USE CALL LIGHT BEFORE ATTEMPTING TO USE BEDSIDE COMMODE AND IF HE HAS AND ACCIDENT IN THE BED, KINDLY USE THE CALL LIGHT. PATIENT UNDERSTOOD AND AGREED. PATIENT WAS BREATHING ON ROOM AIR WITHOUT DISTRESS. NO NOTED S/S OF HYPER/HYPOGLYCEMIA. RIGHT FOOT DRESSING WRAPPED AND INTACT. PATIENT DENIES ANY PAIN/DISCOMFORT. ALL NEEDS MET. SIDE RAILS UP FOR ASSISTANCE AND ADJUSTMENT. [email or web address]
[2022-12-06 20:00] VITALS: BP 137/80
--- NOTE | 2022-12-06 20:00 | NUR ---
Patient's Plan of Care was discussed and reviewed with YUNI: AYLA
--- NOTE | 2022-12-06 20:56 | NUR ---
PATIENT NOTED IN BED SLEEPING. NO NOTED S/S OF PAIN/DISCOMFORT. CHEST RISING AND FALLING WITHOUT INCIDENT. SIDE RAILS UP X 2 CALL LIGHT WITHIN REACH. [email or web address]
--- NOTE | 2022-12-07 00:55 | NUR ---
PATIENT NOTED IN BED SLEEPING. NO NOTED S/S OF PAIN/DISCOMFORT. CHEST RISING AND FALLING WITHOUT INCIDENT. SIDE RAILS UP X 2 CALL LIGHT WITHIN REACH. [email or web address]
--- NOTE | 2022-12-07 03:47 | NUR ---
PATIENT NOTED IN BED ASLEEP. NO NOTED RESPIRATORY DISTRESS. NO S/S OF PAIN/DISCOMFORT. ALL NEEDS MET. CALL LIGHT IN REACH. SIDE RAILS UP X 2 FOR ADJUSTMENT AND COMFORT. [email or web address]
[2022-12-07 04:00] VITALS: BP 162/93
--- NOTE | 2022-12-07 05:17 | NUR ---
NO COMPLAINS OF PAIN/DISCOMFORT. WILL ENDORSE SHIFT TO AM NURSING. NO NOTED RESPIRATORY DISTRESS. CALL LIGHT WITHIN REACH. [email or web address]
[2022-12-07] MEDS: PIPERACILLIN/TAZOBACTAM 3.375 GM in DEXTROSE 5% 50 ML IV SCH ×4 (05:21→23:29)
[2022-12-07] MEDS: BLOOD GLUCOSE MONITORING 1 DEV DEV FS SCH ×4 (06:40→20:18)
[2022-12-07 06:53] LABS: BASOPHILS % (AUTO) 0.5 % (0.0-2.0); EOSINOPHILS # (AUTO) 0.4 K/uL (0-0.4); EOSINOPHILS % (AUTO) 4.5 % (0.0-4.0); HEMATOCRIT 22.5 % (36-52); HEMOGLOBIN 7.6 g/dL (12.0-18.0); LYMPHOCYTES # (AUTO) 2.5 K/uL (2.0-11.5); LYMPHOCYTES % (AUTO) 25.1 % (20.5-51.1); MEAN CORPUSCULAR HEMOGLOBIN 29 pg (27-31); MEAN CORPUSCULAR HGB CONC 34 g/dL (33-37); MEAN CORPUSCULAR VOLUME 84.3 fL (80-94); MONOCYTES % (AUTO) 9.9 % (1.7-9.3); PLATELET COUNT (AUTO) 621 K/uL (140-450); RED BLOOD CELL COUNT(AUTO) 2.66 MIL/uL (4.20-6.10); RED CELL DISTRIBUTION WIDTH 14.9 % (11.6-13.7)
[2022-12-07 07:07] LABS: ANION GAP 10.4 (8-16); CARBON DIOXIDE 26.3 mmol/L (21-32); CREATININE 1.2 mg/dL (0.6-1.3); POTASSIUM 3.7 mmol/L (3.5-5.1)
[2022-12-07 08:00] VITALS: BP 166/94
[2022-12-07] MEDS: SODIUM FERRIC GLUCONATE 125 MG in NACL 0.9% 100 ML IV SCH (10:05)
[2022-12-07] MEDS: carvediloL 12.5 MG TAB PO SCH ×2 (10:11→20:11)
[2022-12-07] MEDS: ATORVASTATIN 20 MG TAB PO SCH (10:11)
[2022-12-07] MEDS: PANTOPRAZOLE 40 MG TABEC PO SCH (10:12)
[2022-12-07] MEDS: LOSARTAN 25 MG TAB PO SCH ×2 (10:12→20:11)
[2022-12-07] MEDS: ECOTRIN 81 MG TABEC PO SCH (10:13)
--- NOTE | 2022-12-07 10:37 | NUR ---
WOUND CARE RE-EVALUATION NOTE: POC DISCUSSED WITH PRIMARY ENRRIQUE LIN OINT DISCONTINUE. POC DISCUSSED WITH DR. CELAYA WILL USE THERAHONEY GEL . POC DISCUSSED WITH PRIMARY ENRRIQUE MOHAN -RIGHT HEEL S/P DEBRIDEMENT 5X6X1.5CM, WOUND BED 100%HERRERA,YELLOW SOFT TISSUE, NO DRAINAGE, NO ODOR. NADIRA-WOUND SKIN DRY,INTACT PAIN 0/10. RECOMMENDATION: CLEANSE RIGHT HEEL WITH NS, PAT DRY APPLY THERAHONEY GEL WITH OIL EMULSION DRESSING,COVER WITH DRY DRESSING AND WRAP WITH KERLIX ROLL, SECURED WITH TAPE DAILY AND PRN IF SOILING.
[2022-12-07] MEDS: INSULIN LISPRO SLIDING SCALE 100 UNITS/ML VIAL SUBQ PRN ×3 (12:17→20:20)
--- NOTE | 2022-12-07 12:42 | NUR ---
12/07/22 RD FOLLOW UP COMPLETED PLEASE REFER TO NUTRITION ASSESSMENT UNDER CARE ACTIVITY FOR ESTIMATED NUTRITIONAL NEEDS. 1. CONTINUE [id number] DIET WITH GLUCERNA DAILY AND PROSOURCE BID FOR WOUND SUPPORT TOLERATED -GLUCERNA PROVIDES 220 KCAL, 10G PROTEIN AND PROSOURCE BID PROVIDES 30GM PROTEIN DAILY 2. PROVIDED NUTRITION EDUCATION AND HANDOUTS FOR CARB COUNTING 3. MONITOR PO INTAKE AND WOUNDS 4. RD TO FOLLOW-UP 7 DAYS, LOW RISK REVIEWED BY ALISON LEY RD
[2022-12-07] MEDS: NON ADHERENT DRESSING TP SCH (13:03)
[2022-12-07] MEDS: THERAHONEY GEL 42.5 GM TP SCH (13:03)
--- NOTE | 2022-12-07 13:16 | NUR ---
CALLED [facility] AT [address] [facility] [id number], AND SPOKE WITH EVENS WHO WAS ABLE TO HELP ME SCHEDULE AN APPOINTMENT FOR 12/19/2022 AT 1530. WENT TO BEDSIDE BUT PATIENT WAS ASLEEP INDORSED TO NURSE MARQUES TO GIVE APPOINTMENT SLIP TO PATIENT WHEN AWAKE.
[2022-12-07 16:00] VITALS: BP 149/91
[2022-12-07] MEDS: FERROUS SULFATE 325 MG TABEC PO SCH (17:12)
--- NOTE | 2022-12-07 19:25 | NUR ---
ENDORSE PATIENT IN STABLE CONDITION TO PM SHIFT NURSE WHILE PICC KISHOR PATENT SALINE LOCK, JAEGER 16FR DRAINING BY GRAVITY. PATIENT NEEDS 6 WEEKS IV ANTIBIOTIC THERAPY AFTER DISCHARGE FROM HOSPITAL
--- NOTE | 2022-12-07 19:26 | NUR ---
RECEIVED PT FROM MORNING SHIFT NURSE. PT IS AOX3, YORUBA SPEAKING AND BEDREST. PT IS ON ROOM AIR AND ON CCHO DIET. PT HAS JAEGER CATHETER AND HAS PICC LINE DOUBLE LUMEN ON RIGHT UPPER ARM, SALINE LOCK AND HAS IV ON RIGHT FOREARM GAUGE22 SALINE LOCK. PT HAS RIGHT HEEL OSTEOMYELITIS. NO COMPLAIN OF PAIN AND NO S/S OF RESPIRATORY DISTRESS NOTED. ALL SAFETY MEASURES IMPLEMENTED. BED IN LOW POSITION, BED WHEELS ON LOCK AND CALL LIGHT WITHIN REACH.
--- NOTE | 2022-12-07 20:11 | NUR ---
SCHEDULED AND PRESCRIBED MEDICATION WAS GIVEN TO PT PER MD ORDER. ALL SAFETY MEASURES IMPLEMENTED. BED IN LOW POSITION, BED WHEELS ON LOCK AND CALL LIGHT WITHIN REACH.
--- NOTE | 2022-12-07 20:20 | NUR ---
PT BLOOD GLUCOSE IA 206. HUMALOG INSULIN 4 UNITS WAS GIVEN TO PT.
--- NOTE | 2022-12-07 22:00 | NUR ---
PT REQUESTED TO CLEANED HIM AND TO CHANGED DIAPER. ALL SAFETY MEASURES IMPLEMENTED. BED IN LOW POSITION, BED WHEELS ON LOCK AND CALL LIGHT WITHIN REACH.
--- NOTE | 2022-12-08 02:00 | NUR ---
PT IS ON SLEEP. CHEST RISE AND FALL SYMMETRICALLY NOTED. RESPIRATION IS EVEN AND UNLABORED. ALL SAFETY MEASURES IMPLEMENTED. BED IN LOW POSITION, BED WHEELS ON LOCK AND CALL LIGHT WITHIN REACH.
--- NOTE | 2022-12-08 03:47 | NUR ---
PT REMOVED JAEGER CATHETER. PT REFUSED TO RE-INSERT A NEW ONE. EXPLAINED TO PT BUT PT STILL REFUSED. Addendum: 12/08/22 at 0403 by Cyn Adames RN WRONG PT
[2022-12-08 04:00] VITALS: BP 153/85
--- NOTE | 2022-12-08 05:00 | NUR ---
MORNING CARE WAS DONE TO PT. CHANGED DIAPER, GOWN AND LINENS. ALL SAFETY MEASURES IMPLEMENTED. BED IN LOW POSITION, BED WHEELS ON LOCK AND CALL LIGHT WITHIN REACH.
[2022-12-08] MEDS: PIPERACILLIN/TAZOBACTAM 3.375 GM in DEXTROSE 5% 50 ML IV SCH ×3 (05:12→18:31)
[2022-12-08] MEDS: BLOOD GLUCOSE MONITORING 1 DEV DEV FS SCH ×4 (06:30→20:15)
--- NOTE | 2022-12-08 06:30 | NUR ---
PT BLOOD GLUCOSE IS 146. NO INSULIN COVERAGE NEEDED.
--- NOTE | 2022-12-08 06:41 | NUR ---
TYLENOL WAS GIVEN TO PT DUE TO MILD PAIN ON PICC LINE.
--- NOTE | 2022-12-08 07:11 | NUR ---
PT IS STABLE. ENDORSED PT TO MORNING SHIFT NURSE FOR CONTINUITY OF CARE.
--- NOTE | 2022-12-08 07:12 | NUR ---
RECEIVED PT FROM SHIP'S OFFICER NURSE FOR CONTINUITY OF CARE. PT IS AWAKE, AOX4. RESPIRATIONS EVEN AND UNLABORED ON RA. JAEGER IN PLACE DRAINING TO GRAVITY. KISHOR PIC LINE DOUBLE LUMEN, SL. NO C/O OF PAIN. NO DISTRESS NOTED. CALL LIGHT WITHIN REACH. ALL SAFETY PRECAUTIONS IN PLACE.
[2022-12-08 08:00] VITALS: BP 147/88
--- NOTE | 2022-12-08 08:00 | NUR ---
Patient's Plan of Care was discussed and reviewed with INSTANT POTATO PROCESSOR: LARY
[2022-12-08] MEDS: ECOTRIN 81 MG TABEC PO SCH (08:26)
[2022-12-08] MEDS: PANTOPRAZOLE 40 MG TABEC PO SCH (08:26)
[2022-12-08] MEDS: ATORVASTATIN 20 MG TAB PO SCH (08:27)
[2022-12-08] MEDS: LOSARTAN 25 MG TAB PO SCH ×2 (08:27→20:14)
[2022-12-08] MEDS: carvediloL 12.5 MG TAB PO SCH ×2 (08:27→20:14)
[2022-12-08] MEDS: FERROUS SULFATE 325 MG TABEC PO SCH ×2 (08:37→17:00)
[2022-12-08] MEDS: INSULIN LISPRO SLIDING SCALE 100 UNITS/ML VIAL SUBQ PRN ×3 (11:00→20:17)
--- NOTE | 2022-12-08 13:03 | NUR ---
WOUND CARE DONE, PT DENIES ANY PAIN. SLEEPING IN BED.
[2022-12-08] MEDS: NON ADHERENT DRESSING TP SCH (13:04)
[2022-12-08] MEDS: THERAHONEY GEL 42.5 GM TP SCH (13:04)
[2022-12-08] MEDS ORDERED: FER325 PO (16:17)
[2022-12-08] MEDS ORDERED: CARV12.52 PO (16:17)
[2022-12-08] MEDS ORDERED: PIPE1SOL IV (16:17)
[2022-12-08] MEDS: guaiFENesin DM 200/20 MG-10 ML 10 ML UDC PO PRN (17:01)
[2022-12-08 18:35] VITALS: BP 137/87
[2022-12-08 19:00] VITALS: BP 137/87
--- NOTE | 2022-12-08 19:00 | NUR ---
CALLED PT BROTHER EDGAR, TO INFORM PT WILL BE READY TO DC AFTER HIS ABX. BROTHER STATES HE WILL BE HERE TO LOOM TECHNICIAN BROTHER AT 8PM. GAVE REPORT TO DIEGO FOR CONTINUITY OF PT CARE. ENDORSED DISCHARGE TO REVERBERATORY SKIMMER NURSE. PT STABLE.
--- NOTE | 2022-12-08 19:30 | NUR ---
RECEIVED PT FROM MORNING SHIFT NURSE. PT IS AOX3, ALBANIAN SPEAKING AND BEDREST. PT IS ON ROOM AIR AND ON CCHO DIET. PT HAS JAEGER CATHETER AND HAS PICC LINE DOUBLE LUMEN ON RIGHT UPPER ARM, SALINE LOCK RUNNING WITH ZOSYN AT 100ML/HR. PT HAS RIGHT HEEL OSTEOMYELITIS. NO COMPLAIN OF PAIN AND NO S/S OF RESPIRATORY DISTRESS NOTED. PT WILL BE DISCHARGE AT 9PM. ALL SAFETY MEASURES IMPLEMENTED. BED IN LOW POSITION, BED WHEELS ON LOCK AND CALL LIGHT WITHIN REACH.
[2022-12-08 20:00] VITALS: BP 138/86
--- NOTE | 2022-12-08 20:14 | NUR ---
ALL SCHEDULED MEDICATION WAS GIVEN TO PT PER MD ORDER. ALL SAFETY MEASURES IMPLEMENTED. BED IN LOW POSITION, BED WHEELS ON LOCK AND CALL LIGHT WITHIN REACH.
--- NOTE | 2022-12-08 20:17 | NUR ---
PT BLOOD GLUCOSE IS 178. HUMALOG INSULIN 2 UNITS WAS GIVEN TO PT PER MD ORDER.
--- NOTE | 2022-12-08 20:45 | NUR ---
PT WAS DISCHARGED. PT WAS FETCH WITH HIS BROTHER AND SISTER WITH THE EXPLAINED DISCHARGED POCKET AND APPOINTMENT AT [facility] ON 12/19/2022. ALL WAS DISCUSSED TO THE SIBLINGS AND AGREED ON IT.
== END 2022-12-08 20:45 | disposition home or self-care (01) | DRG 710 ==
LOC: MED 19:05 → MMU 22:27 → MTU 11-30 01:50
PROVIDERS: ADMIT Family Medicine; ATTEND Family Medicine
PROC: 0YBM0ZZ Excision of Right Foot, Open Approach (ICD-10-PCS; principal; 2022-12-01)
PROC: 30233N1 Transfusion of Nonautologous Red Blood Cells into Peripheral Vein, Percutaneous Approach (ICD-10-PCS; 2022-12-01)
PROC: 02HV33Z Insertion of Infusion Device into Superior Vena Cava, Percutaneous Approach (ICD-10-PCS; 2022-12-06)
DX: A41.9 Sepsis, unspecified organism (principal); E43 Unspecified severe protein-calorie malnutrition; E11.649 Type 2 diabetes mellitus with hypoglycemia without coma; I42.9 Cardiomyopathy, unspecified; J18.9 Pneumonia, unspecified organism; E83.51 Hypocalcemia; J81.1 Chronic pulmonary edema; J90 Pleural effusion, not elsewhere classified; E11.621 Type 2 diabetes mellitus with foot ulcer; L03.115 Cellulitis of right lower limb; E86.0 Dehydration; R79.89 Other specified abnormal findings of blood chemistry; L97.416 Non-pressure chronic ulcer of right heel and midfoot with bone involvement without evidence of necrosis; M86.8X7 Other osteomyelitis, ankle and foot; E11.69 Type 2 diabetes mellitus with other specified complication; E78.5 Hyperlipidemia, unspecified; I10 Essential (primary) hypertension; Z20.822 Contact with and (suspected) exposure to COVID-19; Z68.24 Body mass index [BMI] 24.0-24.9, adult; Z86.73 Personal history of transient ischemic attack (TIA), and cerebral infarction without residual deficits
CPT/HCPCS: 36415; 71045; 73630; 80048; 80053; 80202; 80305; 81001; 82150; 82272; 82607; 82728; 82746; 82948; 83036; 83540; 83605; 83690; 83735; 83880; 84100; 84436; 84439; 84443; 84479; 84484; 85018; 85025; 85610; 85651; 85730; 86140; 86886; 86900; 86901; 86920; 87040; 87081; 88304; 96365; 96366; 96368; 99291; J1815; J1940; J2543; J2916; J3370; J7060; P9016; Q0092

== ENCOUNTER 2022-12-15 09:22 | Inpatient (IN) | payer MEDICAID ==
[~2022-12-15] VITALS: Ht 167.6 cm; Wt 68.5 kg
[~2022-12-15 09:22] MED LIST changes: +ASPI-1822 PO; +CARV12.52 PO; +FER325 PO; +GABA100C PO; -LEVO-481 PO; +PIPE1SOL IV
--- NOTE | 2022-12-15 09:25 | NUR ---
[facility] TO ER BED 12
[2022-12-15] MEDS ORDERED: NACL 0.9% 1,000 ML IV SCH (09:40)
[2022-12-15 09:43] VITALS: BP 170/101
[2022-12-15 10:23] LABS: BASOPHILS # (AUTO) 0.1 K/uL (0.00-0.22); BASOPHILS % (AUTO) 1.1 % (0.0-2.0); EOSINOPHILS # (AUTO) 0.2 K/uL (0-0.4); EOSINOPHILS % (AUTO) 1.9 % (0.0-4.0); HEMATOCRIT 24.8 % (36-52); LYMPHOCYTES # (AUTO) 1.3 K/uL (2.0-11.5); LYMPHOCYTES % (AUTO) 11.1 % (20.5-51.1); MEAN CORPUSCULAR HEMOGLOBIN 27 pg (27-31); MEAN CORPUSCULAR HGB CONC 32 g/dL (33-37); MEAN CORPUSCULAR VOLUME 83.6 fL (80-94); MONOCYTES # (AUTO) 0.6 K/uL (0.8-1.0); NEUTROPHILS # (AUTO) 9.7 K/uL (1.8-7.7); NEUTROPHILS % (AUTO) 80.9 % (42.2-75.2); PLATELET COUNT (AUTO) 545 K/uL (140-450); RED BLOOD CELL COUNT(AUTO) 2.97 MIL/uL (4.20-6.10); RED CELL DISTRIBUTION WIDTH 16.7 % (11.6-13.7); WHITE BLOOD COUNT (AUTO) 11.9 K/uL (4.8-10.8)
[2022-12-15] MEDS ORDERED: OCTREOTIDE ACETATE 100 MCG/ML VIAL SUBQ ONE (10:50)
[2022-12-15] MEDS ORDERED: DEXT 5% / NACL 0.9% 1,000 ML IV ONE (10:50)
[2022-12-15 11:05] LABS: ALBUMIN 1.7 g/dL (3.4-5.0); ANION GAP 10.5 (8-16); ASPARTATE AMINOTRANSFERASE 13 U/L (15-37); CARBON DIOXIDE 26.9 mmol/L (21-32); CHLORIDE 106 mmol/L (98-107); GFR ARICAN-AMERICAN 103 mL/min (>90); GLUCOSE 88 mg/dL (74-106); POTASSIUM 3.4 mmol/L (3.5-5.1); SODIUM SERUM 140 mmol/L (136-145); TOTAL BILIRUBIN 0.2 mg/dL (0.0-1.0); UREA NITROGEN, BLOOD 9 mg/dL (7-18)
[2022-12-15] MEDS ORDERED: ZOLPIDEM 5 MG TAB PO PRN (12:00)
[2022-12-15] MEDS ORDERED: ACETAMINOPHEN 325 MG TAB PO PRN (12:00)
[2022-12-15] MEDS: DEXT 5% /NACL 0.9% 1,000 ML IV SCH ×2 (12:00→22:23)
[2022-12-15] MEDS ORDERED: POTASSIUM CHLORIDE 10 MEQ TABER PO PRN (12:00)
[2022-12-15] MEDS ORDERED: ONDANSETRON 4 MG/2 ML VIAL IM/IVP PRN (12:00)
[2022-12-15] MEDS ORDERED: DOCUSATE SODIUM 100 MG GELCAP PO PRN (12:00)
--- NOTE | 2022-12-15 13:00 | NUR ---
Patient noted to have existing wounds upon arrival to ER. Photos taken of wound and placed in chart. Wound covered with dressing. Physician informed.
[2022-12-15] MEDS: hydrALAZINE 20 MG/ML VIAL IVP PRN ×3 (13:04→18:58)
[2022-12-15 13:18] LABS: PROTHROMBIN TIME 10.9 secs (10.8-13.4)
[2022-12-15 13:36] LABS: CHOL/HDL RATIO 3.3 (1-4.5); FREE T4 (FREE THYROXINE) 0.93 ng/dL (0.76-1.46); MAGNESIUM 1.6 mg/dL (1.8-2.4); PHOSPHORUS 3.3 mg/dL (2.5-4.9); THYROID STIMULATING HORMONE 4.69 uIU/mL (0.34-3.74)
--- NOTE | 2022-12-15 14:30 | NUR ---
Patient will be admitted to care of DR CANCINO. Admited to [facility]. Will go to room 112. Belongings list completed. Report to FRANCK.
--- NOTE | 2022-12-15 14:30 | NUR ---
MOVED TO 112
[2022-12-15 16:00] VITALS: BP 173/106
[2022-12-15] MEDS: INSULIN LISPRO SLIDING SCALE 100 UNITS/ML VIAL SUBQ PRN ×2 (16:57→20:31)
[2022-12-15] MEDS: BLOOD GLUCOSE MONITORING 1 DEV DEV FS SCH ×2 (17:00→20:28)
[2022-12-15] MEDS: FERROUS SULFATE 325 MG TABEC PO SCH (17:35)
--- NOTE | 2022-12-15 18:58 | NUR ---
GIVEN HYDRALAZINE 10MG FROM THE 20MG ALESIHA AND WASTED HALF, GIVEN FOR THE BLOOD PRESSURE 180/112 .[id number]
--- NOTE | 2022-12-15 19:03 | NUR ---
NOW BP IS 167/97 , PT CAN NOT URINATE MESSAGED THE DR WILL ENDORSE TO THE NIGHT NURSE.[id number]
--- NOTE | 2022-12-15 19:18 | NUR ---
ENDORSED TO THE NIGHT NURSE, PT IS STABLE NO DISCOMFORT.[id number]
--- NOTE | 2022-12-15 19:19 | NUR ---
RECEIVED PT FROM MORNING SHIFT NURSE. PT IS AOX4, IRISH SPEAKING, ABLE TO VERBALIZE NEEDS AND ABLE TO FOLLOW COMMANDS. MS IS ON BED REST, ROOM AIR AND ON REGULAR DIET. PT HAS PICC LINE DOUBLE LUMEN ON RIGHT UPPER ARM RUNNING WITH D5NS AT 100ML/HR AND THERE'S UNKNOWN ANTIBIOTIC THAT WAS HOOK TO PT. WILL WAIT FOR THE DOCTOR'S NOTE WITH THAT. PT HAS LEFT HAND GAUGE 20, SALINE LOCK. PT HAS RIGHT HEAL OSTEOMYELITIS. ALL SAFETY MEASURES IMPLEMENTED. BED IN LOW POSITION, BED WHEELS ON LOCK AND CALL LIGHT WITHIN REACH.
[2022-12-15 20:00] VITALS: BP 157/93
[2022-12-15] MEDS: carvediloL 12.5 MG TAB PO SCH (20:22)
--- NOTE | 2022-12-15 20:22 | NUR ---
SCHEDULED AND PRESCRIBED MEDICATION WAS GIVEN TO PT PER MD ORDER. ALL SAFETY MEASURES IMPLEMENTED. BED IN LOW POSITION, BED WHEELS ON LOCK AND CALL LIGHT WITHIN REACH.
--- NOTE | 2022-12-15 20:31 | NUR ---
PT BLOOD GLUCOSE IS 254. HUMALOG INSULIN 6 UNITS WAS GIVEN TO PT.
[2022-12-15] MEDS ORDERED: METOPROLOL 25 MG TAB PO SCH (21:00)
--- NOTE | 2022-12-15 22:00 | NUR ---
PUT CONDOM CATHETER TO PT. ALL SAFETY MEASURES IMPLEMENTED. BED IN LOW POSITION. BED WHEELS ON LOCK AND CALL LIGHT WITHIN REACH.
--- NOTE | 2022-12-16 | NUR ---
PT IS ON SLEEP. CHEST RISE AND FALL SYMMETRICALLY NOTED. RESPIRATION IS EVEN AND UNLABORED. ALL SAFETY MEASURES IMPLEMENTED. BED IN LOW POSITION. BED WHEELS ON LOCK AND CALL LIGHT WITHIN REACH.
--- NOTE | 2022-12-16 02:00 | NUR ---
CHECKED THE PT STILL ON SLEEP. CHEST RISE AND FALL SYMMETRICALLY NOTED. RESPIRATION IS EVEN AND UNLABORED. ALL SAFETY MEASURES IMPLEMENTED. BED IN LOW POSITION. BED WHEELS ON LOCK AND CALL LIGHT WITHIN REACH.
--- NOTE | 2022-12-16 04:00 | NUR ---
MORNING CARE WAS DONE TO PT. CHANGED GOWN, LINENS AND CHUCKS. ALL SAFETY MEASURES IMPLEMENTED. BED IN LOW POSITION. BED WHEELS ON LOCK AND CALL LIGHT WITHIN REACH.
[2022-12-16 06:10] LABS: CARBON DIOXIDE 26.8 mmol/L (21-32); POTASSIUM 3.8 mmol/L (3.5-5.1)
[2022-12-16 06:11] LABS: BASOPHILS # (AUTO) 0.1 K/uL (0.00-0.22); BASOPHILS % (AUTO) 1.3 % (0.0-2.0); EOSINOPHILS # (AUTO) 0.3 K/uL (0-0.4); HEMATOCRIT 23.9 % (36-52); HEMOGLOBIN 7.8 g/dL (12.0-18.0); LYMPHOCYTES # (AUTO) 1.6 K/uL (2.0-11.5); LYMPHOCYTES % (AUTO) 18.3 % (20.5-51.1); MEAN CORPUSCULAR HEMOGLOBIN 28 pg (27-31); MEAN CORPUSCULAR HGB CONC 33 g/dL (33-37); MEAN CORPUSCULAR VOLUME 84.8 fL (80-94); MONOCYTES # (AUTO) 0.6 K/uL (0.8-1.0); MONOCYTES % (AUTO) 6.8 % (1.7-9.3); NEUTROPHILS # (AUTO) 6.2 K/uL (1.8-7.7); NEUTROPHILS % (AUTO) 70.6 % (42.2-75.2); PLATELET COUNT (AUTO) 503 K/uL (140-450); RED BLOOD CELL COUNT(AUTO) 2.82 MIL/uL (4.20-6.10); RED CELL DISTRIBUTION WIDTH 16.5 % (11.6-13.7); WHITE BLOOD COUNT (AUTO) 8.8 K/uL (4.8-10.8)
[2022-12-16 06:45] LABS: APPEARANCE,URINE SL CLOUDY (CLEAR); BILIRUBIN,URINE NEGATIVE (NEGATIVE); BLOOD, URINE 1+ (NEGATIVE); COLOR,URINE YELLOW (YELLOW); LEUKOCYTE ESTERASE ,URINE NEGATIVE (NEGATIVE); NITRITE, URINE NEGATIVE (NEGATIVE); UGLUCOSE TRACE (NEGATIVE)
[2022-12-16] MEDS: INSULIN LISPRO SLIDING SCALE 100 UNITS/ML VIAL SUBQ PRN ×3 (06:48→21:55)
[2022-12-16] MEDS: BLOOD GLUCOSE MONITORING 1 DEV DEV FS SCH ×4 (06:48→20:43)
--- NOTE | 2022-12-16 06:48 | NUR ---
PT BLOOD GLUCOSE IS 217. HUMALOG INSULIN 4 UNITS WAS GIVEN TO PT.
[2022-12-16 06:49] LABS: RBC,URINE 0-5 /HPF (0-5)
[2022-12-16] MEDS: hydrALAZINE 20 MG/ML VIAL IVP PRN ×2 (06:59→17:53)
--- NOTE | 2022-12-16 06:59 | NUR ---
PRN HYDRALAZINE WAS GIVEN TO PT DUE TO BP-177/103 WITH PULSE OF 86
--- NOTE | 2022-12-16 07:25 | NUR ---
RECEIVED REPORT FROM NUMERICAL CONTROL TOOL PROGRAMMER FOR CONTINUITY OF CARE. INITIAL ASSESSMENT DONE. ALERT AND ORIENTED X 4. PASHTO SPEAKING ONLY. RESP. EVEN AND UNLABORED. PICC LINE INTACT TO KISHOR. IV SITE TO LT HAND INTACT. NO C/O PAIN OR DISCOMFORT. CALL LIGHT KEPT WITHIN REACH. WILL CONTINUE TO MONITOR.
--- NOTE | 2022-12-16 07:30 | NUR ---
PT IS STABLE. ENDORSED PT TO MORNING SHIFT NURSE FOR CONTINUITY OF CARE.
--- NOTE | 2022-12-16 07:57 | NUR ---
Patient's Plan of Care was discussed and reviewed with AUTOMATION TECHNOLOGIST: DELFINA
[2022-12-16 08:00] VITALS: BP 159/100
[2022-12-16] MEDS: DEXT 5% /NACL 0.9% 1,000 ML IV SCH ×2 (08:40→18:27)
[2022-12-16] MEDS: carvediloL 12.5 MG TAB PO SCH ×2 (08:42→21:57)
--- NOTE | 2022-12-16 08:42 | NUR ---
SCHEDULED MEDICATIONS GIVEN. TOLERATED WELL.
[2022-12-16] MEDS: ATORVASTATIN 20 MG TAB PO SCH (08:43)
[2022-12-16] MEDS: LOSARTAN 50 MG TAB PO SCH (08:43)
[2022-12-16] MEDS: FERROUS SULFATE 325 MG TABEC PO SCH ×2 (08:43→18:19)
[2022-12-16] MEDS: GABAPENTIN 100 MG CAP PO SCH (08:43)
[2022-12-16] MEDS: ASPIRIN 81 MG TAB.CHEW PO SCH (08:43)
[2022-12-16] MEDS: PANTOPRAZOLE 40 MG TABEC PO SCH (08:43)
[2022-12-16 09:07] LABS: T4 (THYROXINE) 5.5 ug/dL (4.5-12.0)
--- NOTE | 2022-12-16 09:07 | NUR ---
PATIENT HAS BEEN SCREENED AND CATEGORIZED HIGH NUTRITION RISK. PATIENT WILL BE SEEN WITHIN 1-2 DAYS OF ADMISSION. 12/16/22-12/17/22 [facility] REFERRAL RECEIVED FOR UNCONTROLLED DIABETES AND CONSULT FOR WOULD 12/16/[address]
--- NOTE | 2022-12-16 11:13 | NUR ---
WOUND CARE NOTE: RIGHT HEEL DIABETIC ULCER 5X6 CM, WOUND BED 100% YELLOW SOFT TISSUE, MOIST, NO ODOR. WOUND EDGE TO 11 OCLOCK DIRECTION 2X0.5CM STABLE BLACK ESCHAR TISSUE NADIRA-WOUND SKIN DRY,INTACT PAIN 0/10. RECOMMENDATION: -CLEANSE RIGHT HEEL WITH NS, PAT DRY APPLY THERAHONEY GEL WITH OIL EMULSION DRESSING,COVER WITH DRY DRESSING AND WRAP WITH KERLIX ROLL, SECURED WITH TAPE DAILY AND PRN IF SOILING. -HEEL RAISER TO OFFLOAD RIGHT HEEL WHEN IN BED
--- NOTE | 2022-12-16 11:30 | NUR ---
C PLANNING 47 YRS MALE PATENT WAS ADMITTED FROM HOME WITH A DX OF HYPOGLYCEMIA. PATIENT WAS DC FROM THE HOSPITAL WITH HOME INFUSION WITH [facility] FOR 6 WEEKS ABX. AFTER TREATED FOR CELLULITIS AND OSTEOMYELITIS OF RIGHT FOOT. PATIENT HAS A HX OF HTN, DM,CVA WITH RIGHT SIDED DEFICIT,AND HYPERLIPIDEMIA. ADMINISTERED IVF IV ABX ZOSYN. CONSULTED WITH WOUND CARE NURSE TO EVALUATE AND TREAT THE WOUND. DC PLAN-TO GO HOME AND CONTINUE IV ABX WITH [facility] WHEN STABLE. CM TO FOLLOW.
--- NOTE | 2022-12-16 12:15 | NUR ---
BS CHECKED 207. INSULIN WAS GIVEN PER SLIDING SCALE.
[2022-12-16] MEDS: PIPERACILLIN/TAZOBACTAM 3.375 GM in DEXTROSE 5% 50 ML IV SCH ×2 (12:51→18:23)
--- NOTE | 2022-12-16 12:51 | NUR ---
IV ZOSYN WAS GIVEN BY NILES OSUNA. TOLERATED WELL.
[2022-12-16] MEDS: NON ADHERENT DRESSING TP SCH (13:00)
--- NOTE | 2022-12-16 14:33 | NUR ---
12/16/22 RD INITIAL ASSESSMENT COMPLETED PLEASE REFER TO NUTRITION ASSESSMENT UNDER CARE ACTIVITY FOR ESTIMATED NUTRITIONAL NEEDS. 1. RECOMMEND [id number] DIET WITH PROSOURCE BID FOR WOUND SUPPORT TOLERATED - PROSOURCE BID PROVIDES 30GM PROTEIN DAILY 2. PROVIDED NUTRITION EDUCATION AND HANDOUTS FOR CARB COUNTING 3. MONITOR PO INTAKE AND WOUND 4. RD TO FOLLOW-UP 7 DAYS, LOW RISK REVIEWED BY ALISON LEY RD
--- NOTE | 2022-12-16 15:10 | NUR ---
INFORMED BY PT BROTHER THAT PT COMPLAINT OF SHORTNESS OF BREATH. SATTING ON 93% RA. PLACED ON 2L/NC SATTING 96%. HEAD OF BED ELEVATED. WHEEZING NOTED. DR. CANCINO NOTIFIED WITH NEW ORDERES: CHEST XRAY. DUONEB Q 4H PRN. NOTED AND CARRIED OUT.
[2022-12-16 16:00] VITALS: BP 173/112
--- NOTE | 2022-12-16 16:36 | NUR ---
WAS APPROACHED BY ENRRIQUE MATHIS ABOUT PT COMPLAINING ABOUT SOB. ASSESSMENT OF PT COMPLETED BY TARI AND Komal WHICH REVEALED NO WHEEZING AND CLEAR AERATION THROUGHOUT ALL LUNG RODAS. PT WAS REPOSITIONED IN BED AND IS SAT OF 99 AND HR 0F 74. PT IS COMFORTABLE AND RESTING.
--- NOTE | 2022-12-16 17:10 | NUR ---
BS CHECKED 145. NO COVERAGE NEEDED.
[2022-12-16] MEDS ORDERED: ALBUTEROL SULFATE/IPRATROPIU 3 ML SOL IH ONE (17:33)
--- NOTE | 2022-12-16 17:53 | NUR ---
PRN HYDRALAZINE IVP GIVEN BY NILES OSUAN. TOLERATED WELL.
[2022-12-16] MEDS: ALBUTEROL SULFATE/IPRATROPIU 3 ML SOL IH PRN (17:54)
--- NOTE | 2022-12-16 18:19 | NUR ---
ATTEMPTED TO PULLED OUT IRON 2X FROM OMNICELL BUT UNABLE TO TAKE MEDICATION, CALLED PHARMACY, SHON ASSISTED TO REMOVED MEDICATION. SCHEDULED IRON PO GIVEN. TOLERATED WELL.
--- NOTE | 2022-12-16 18:23 | NUR ---
IV ZOSYN WAS GIVEN NILESHUNG OSUNA. TOLERATED WELL.
[2022-12-16] MEDS: HYDROcodone/APAP 7.5/325 MG 1 TAB PO PRN (18:39)
--- NOTE | 2022-12-16 19:37 | NUR ---
BEDSIDE REPORT GIVEN TO RIVETER PORTABLE MACHINE LAURA FOR CONTINUITY OF CARE. REMAINS STABLE.
[2022-12-16 20:00] VITALS: BP 137/85
--- NOTE | 2022-12-16 21:00 | NUR ---
BLOOD SUGAR CHECK = 191 = 2 UNITS HUMALOG INSULIN GIVEN.
--- NOTE | 2022-12-16 22:06 | NUR ---
REASSESSMENT FOR HYDRALAZINE WERE NOT DONE ON 140 AND 183.
--- NOTE | 2022-12-16 22:08 | NUR ---
HYDRALAZINE ASSESSMENT ON DAY SHIFT.
[2022-12-17 04:00] VITALS: BP 136/80
[2022-12-17] MEDS: DEXT 5% /NACL 0.9% 1,000 ML IV SCH ×2 (04:18→10:30)
--- NOTE | 2022-12-17 06:30 | NUR ---
BLOOD SUGAR CHECK = 144, NO INSULIN COVERAGE. PT IS ON STABLE CONDITION.
[2022-12-17 06:47] LABS: BASOPHILS # (AUTO) 0.1 K/uL (0.00-0.22); BASOPHILS % (AUTO) 1.3 % (0.0-2.0); EOSINOPHILS # (AUTO) 0.2 K/uL (0-0.4); EOSINOPHILS % (AUTO) 2.5 % (0.0-4.0); HEMATOCRIT 22.8 % (36-52); HEMOGLOBIN 7.5 g/dL (12.0-18.0); LYMPHOCYTES # (AUTO) 1.6 K/uL (2.0-11.5); LYMPHOCYTES % (AUTO) 19.1 % (20.5-51.1); MEAN CORPUSCULAR HEMOGLOBIN 28 pg (27-31); MEAN CORPUSCULAR HGB CONC 33 g/dL (33-37); MEAN CORPUSCULAR VOLUME 84.5 fL (80-94); MONOCYTES # (AUTO) 0.7 K/uL (0.8-1.0); NEUTROPHILS # (AUTO) 5.7 K/uL (1.8-7.7); NEUTROPHILS % (AUTO) 69.1 % (42.2-75.2); PLATELET COUNT (AUTO) 465 K/uL (140-450); RED BLOOD CELL COUNT(AUTO) 2.69 MIL/uL (4.20-6.10); RED CELL DISTRIBUTION WIDTH 16.6 % (11.6-13.7); WHITE BLOOD COUNT (AUTO) 8.2 K/uL (4.8-10.8)
[2022-12-17 07:00] LABS: ANION GAP 10.2 (8-16); CARBON DIOXIDE 25.5 mmol/L (21-32); CREATININE 1.1 mg/dL (0.6-1.3); POTASSIUM 3.7 mmol/L (3.5-5.1)
[2022-12-17] MEDS: PIPERACILLIN/TAZOBACTAM 3.375 GM in DEXTROSE 5% 50 ML IV SCH ×5 (07:00→17:16)
[2022-12-17] MEDS: BLOOD GLUCOSE MONITORING 1 DEV DEV FS SCH ×4 (07:04→20:51)
--- NOTE | 2022-12-17 07:10 | NUR ---
ASSUMED CONTINUITY OF CARE. INITIAL ASSESSMENT DONE. KEEP COMFORTABLE ON BED. CALL LIGHT WITHIN REACH.
[2022-12-17 08:00] VITALS: BP 165/98
--- NOTE | 2022-12-17 08:00 | NUR ---
Patient's Plan of Care was discussed and reviewed with SENIOR ACTUARIAL ANALYST: KENNA
[2022-12-17] MEDS: FERROUS SULFATE 325 MG TABEC PO SCH ×2 (08:13→17:00)
[2022-12-17] MEDS: hydrALAZINE 20 MG/ML VIAL IVP PRN (08:20)
[2022-12-17 09:20] VITALS: BP 159/86
[2022-12-17] MEDS: ASPIRIN 81 MG TAB.CHEW PO SCH (09:23)
[2022-12-17] MEDS: ATORVASTATIN 20 MG TAB PO SCH (09:23)
[2022-12-17] MEDS: carvediloL 12.5 MG TAB PO SCH ×2 (09:24→20:47)
[2022-12-17] MEDS: LOSARTAN 50 MG TAB PO SCH (09:24)
[2022-12-17] MEDS: PANTOPRAZOLE 40 MG TABEC PO SCH (09:24)
[2022-12-17] MEDS: GABAPENTIN 100 MG CAP PO SCH (09:24)
[2022-12-17] MEDS: INSULIN LISPRO SLIDING SCALE 100 UNITS/ML VIAL SUBQ PRN ×2 (11:28→16:54)
[2022-12-17 12:00] VITALS: BP 153/94
--- NOTE | 2022-12-17 12:45 | NUR ---
WOUND CARE DONE ON RIGHT HEEL DM ULCER WITH ASSISTANCE FROM CHRISTIAN CURIEL. TOLERATED WELL. NO C/O PAIN.
[2022-12-17] MEDS: ALBUTEROL SULFATE/IPRATROPIU 3 ML SOL IH PRN (13:01)
[2022-12-17] MEDS: NON ADHERENT DRESSING TP SCH (13:15)
[2022-12-17] MEDS ORDERED: HYDRAGUARD CREAM TP SCH (14:18)
[2022-12-17 16:00] VITALS: BP 152/94
[2022-12-17] MEDS: Z-GUARD PASTE TP SCH (17:01)
--- NOTE | 2022-12-17 17:05 | NUR ---
SKIN CARE DONE ON PERINEAL SKIN REDNESS WITH Z-GUARD. TOLERATED WELL.
--- NOTE | 2022-12-17 19:17 | NUR ---
REPORT GIVEN TO DIEGO MOORE IN STABLE CONDITION.
--- NOTE | 2022-12-17 19:18 | NUR ---
RECEIVED PT FROM MORNING SHIFT NURSE. PT IS AOX4, YORUBA SPEAKING,ABLE TO VERBALIZE NEEDS AND ABLE TO FOLLOW COMMANDS. PT IS BEDBOUND, ON 2L NC AND ON CCHO DIET. PT HAS IV ON LEFT HAND GAUGE 20, SALINE LOCK AND PICC LINE DOUBLE LUMEN ON ON RIGHT UPPER ARM RUNNING WITH D5NS AT 100ML/HR. PT HAS RIGHT HEEL OSTEOMYELITIS. ALL SAFETY MEASURES IMPLEMENTED. BED IN LOW POSITION, BED WHEELS ON LOCK AND CALL LIGHT WITHIN REACH.
--- NOTE | 2022-12-17 20:50 | NUR ---
CALLED TO BEDSIDE BECAUSE PATIENT WAS SAYING THAT THEY WERE HAVING TROUBLE BREATHING. PATIENT WAS ABLE TO CARRY ON A CONVERSATION WITH NURSE I WAS BEDSIDE. PATIENTS BREATH SOUNDS WERE AUSCULTATED RHONCHI. NO RESPIRATORY DISTRESS NOTED. PATIENT SATING AT 96% ON 2L. NO INCREASED WOB.
[2022-12-17] MEDS: HYDROcodone/APAP 7.5/325 MG 1 TAB PO PRN (21:13)
--- NOTE | 2022-12-17 21:13 | NUR ---
PRN PAIN MEDICATION WAS GIVEN TO PT DUE TO GENERALIZEX PAIN WITH PAIN SCALE OF 6/10. ALL SAFETY MEASURES IMPLEMENTED. BED IN LOW POSITION, BED WHEELS ON LOCK AND CALL LIGHT WITHIN REACH.
[2022-12-17] MEDS: guaiFENesin DM 200/20 MG-10 ML 10 ML UDC PO PRN (22:55)
--- NOTE | 2022-12-17 22:55 | NUR ---
PRN COUGH MEDICATION WAS GIVEN TO PT. ALL SAFETY MEASURES IMPLEMENTED. BED IN LOW POSITION, BED WHEELS ON LOCK AND CALL LIGHT WITHIN REACH.
[2022-12-18] VITALS: BP 158/98
[2022-12-18] MEDS: PIPERACILLIN/TAZOBACTAM 3.375 GM in DEXTROSE 5% 50 ML IV SCH ×5 (00:05→23:10)
[2022-12-18] MEDS: DEXT 5% /NACL 0.9% 1,000 ML IV SCH ×2 (00:25→10:18)
--- NOTE | 2022-12-18 02:00 | NUR ---
PT IS ON SLEEP. CHEST RISE AND FALL SYMMETRICALLY NOTED. RESPIRATION IS EVEN AND UNLABORED. ALL SAFETY MEASURES IMPLEMENTED. BED IN LOW POSITION, BED WHEELS ON LOCK AND CALL LIGHT WITHIN REACH.
[2022-12-18] MEDS: hydrALAZINE 20 MG/ML VIAL IVP PRN ×3 (04:27→20:36)
--- NOTE | 2022-12-18 04:27 | NUR ---
PRN HYDRALAZINE WAS GIVEN TO PT DUE TO BP-174/114 WITH PULSE OF 88. ALL SAFETY MEASURES IMPLEMENTED. BED IN LOW POSITION, BED WHEELS ON LOCK AND CALL LIGHT WITHIN REACH.
[2022-12-18] MEDS: INSULIN LISPRO SLIDING SCALE 100 UNITS/ML VIAL SUBQ PRN ×4 (06:44→20:44)
[2022-12-18] MEDS: BLOOD GLUCOSE MONITORING 1 DEV DEV FS SCH ×4 (06:44→20:41)
[2022-12-18 07:06] LABS: BASOPHILS # (AUTO) 0.1 K/uL (0.00-0.22); BASOPHILS % (AUTO) 0.9 % (0.0-2.0); EOSINOPHILS # (AUTO) 0.1 K/uL (0-0.4); EOSINOPHILS % (AUTO) 0.6 % (0.0-4.0); HEMATOCRIT 26.2 % (36-52); HEMOGLOBIN 8.5 g/dL (12.0-18.0); LYMPHOCYTES % (AUTO) 9.6 % (20.5-51.1); MEAN CORPUSCULAR HEMOGLOBIN 28 pg (27-31); MEAN CORPUSCULAR HGB CONC 33 g/dL (33-37); MEAN CORPUSCULAR VOLUME 84.8 fL (80-94); MONOCYTES # (AUTO) 0.5 K/uL (0.8-1.0); MONOCYTES % (AUTO) 5.1 % (1.7-9.3); NEUTROPHILS # (AUTO) 8.3 K/uL (1.8-7.7); NEUTROPHILS % (AUTO) 83.8 % (42.2-75.2); PLATELET COUNT (AUTO) 470 K/uL (140-450); RED BLOOD CELL COUNT(AUTO) 3.09 MIL/uL (4.20-6.10); WHITE BLOOD COUNT (AUTO) 9.9 K/uL (4.8-10.8)
--- NOTE | 2022-12-18 07:09 | NUR ---
PT IS STABLE. ENDORSED PT TO MORNING SHIFT NURSE FOR CONTINUITY OF CARE.
--- NOTE | 2022-12-18 07:10 | NUR ---
ASSUMED CONTINUITY OF CARE. INITIAL ASSESSMENT DONE. KEEP COMFORTABLE ON BED. EXPLAINED USE OF CALL LIGHT/BED/TV/BATHROOM. VERBALIZED UNDERSTANDING. CALL LIGHT WITHIN REACH.
[2022-12-18 07:35] LABS: ANION GAP 13.9 (8-16); CARBON DIOXIDE 23.1 mmol/L (21-32); CREATININE 1.1 mg/dL (0.6-1.3)
[2022-12-18] MEDS: FERROUS SULFATE 325 MG TABEC PO SCH ×2 (07:52→17:05)
[2022-12-18 08:00] VITALS: BP 165/103
--- NOTE | 2022-12-18 08:00 | NUR ---
Patient's Plan of Care was discussed and reviewed with REEL HOOKER: KENNA
[2022-12-18] MEDS: carvediloL 12.5 MG TAB PO SCH ×2 (08:31→20:50)
[2022-12-18] MEDS: ASPIRIN 81 MG TAB.CHEW PO SCH (08:31)
[2022-12-18] MEDS: ATORVASTATIN 20 MG TAB PO SCH (08:31)
[2022-12-18] MEDS: PANTOPRAZOLE 40 MG TABEC PO SCH (08:31)
[2022-12-18] MEDS: Z-GUARD PASTE TP SCH (08:32)
[2022-12-18] MEDS: GABAPENTIN 100 MG CAP PO SCH (08:32)
[2022-12-18] MEDS: LOSARTAN 50 MG TAB PO SCH (08:32)
[2022-12-18] MEDS: ALBUTEROL SULFATE/IPRATROPIU 3 ML SOL IH PRN (08:41)
[2022-12-18] MEDS ORDERED: FUROSEMIDE 20 MG/2 ML VIAL IVP SCH (09:19)
[2022-12-18 12:00] VITALS: BP 182/110
--- NOTE | 2022-12-18 12:06 | NUR ---
PAGED DR. BAKER REGARDING PT. HIGH BP 182/110. INFORMED CHARGE NURSE HARRIS BREWER.
--- NOTE | 2022-12-18 12:32 | NUR ---
DR. BAKER CAME AND SEEN PT.. GAVE ORDER TO D/C IVF, LASIX 40 MG IVP DAILY TO START 12/19/22. INFORMED CHARGE NURSE HARRIS BREWER.
[2022-12-18 13:15] VITALS: BP 134/90
--- NOTE | 2022-12-18 13:45 | NUR ---
WOUND CARE DONE ON RIGHT FOOT. NO C/O PAIN. TOLERATED WELL. PT. FAMILY MEMBERS ON BEDSIDE.
[2022-12-18] MEDS: NON ADHERENT DRESSING TP SCH (14:30)
[2022-12-18 16:00] VITALS: BP 157/97
--- NOTE | 2022-12-18 19:17 | NUR ---
REPORT GIVE TO DELFINA BREWER. IN STABLE CONDITION.
--- NOTE | 2022-12-18 19:30 | NUR ---
OPENING NOTES: Patient was received during change of shift. Patient is AA&Ox3 able to make needs known, with brother at beside and call light within reach. Chest rise is even and unlabored on 2L via NC. PIV noted to the TKO with no noted s/s of infiltration. Noted a RF DM ulcer that is wrapped with dressing C/D/I. Edema noted to the Bilateral extremities. Patient has a condom cath in place that is draining with yellow urine. Safety measures are in place as per protocol. Will resume care and continue to monitor throughout the shift.
[2022-12-18 20:00] VITALS: BP 168/99
--- NOTE | 2022-12-18 20:30 | NUR ---
P.T. NOTES P.T. EVAL INITIATED; REFER TO EVAL FOR DETAILS.
[2022-12-18] MEDS: guaiFENesin DM 200/20 MG-10 ML 10 ML UDC PO PRN (20:49)
--- NOTE | 2022-12-18 22:16 | NUR ---
Patient was assessed as indicated, and patient has received scheduled medications. V/S were assessed and B/P was noted elevated at 168/99 PRN medication was administered as ordered. Patient reported that he has trouble with sleep and has a cough so patient was given scheduled PRN medication for sleep and cough. Will reassess patient B/P and follow up.
--- NOTE | 2022-12-18 23:30 | NUR ---
Patient BP is still noted elevated at this time. scallop raker Dr. Bunch was contacted and new orders were received for a x1 order for labetalol IVP. Orders were noted and carried out will continue to monitor.
[2022-12-18] MEDS ORDERED: LABETALOL 20 MG/4 ML VIAL IVP ONE (23:35)
[2022-12-19 00:27] VITALS: BP 147/87
--- NOTE | 2022-12-19 01:30 | NUR ---
Patient is sleeping no s/s of distress noted at this time. BP was reassessed and noted to have decreased to 147/87. Chest rise is even and unlabored and remain on 2L via NC will continue to monitor.
[2022-12-19 02:00] VITALS: BP 157/87
--- NOTE | 2022-12-19 03:00 | NUR ---
Patient requested to be repositioned in bed. No s/s of distress and BP remain WNL.
[2022-12-19] MEDS: PIPERACILLIN/TAZOBACTAM 3.375 GM in DEXTROSE 5% 50 ML IV SCH ×3 (05:57→18:17)
[2022-12-19] MEDS: hydrALAZINE 20 MG/ML VIAL IVP PRN ×2 (06:15→17:36)
[2022-12-19] MEDS: BLOOD GLUCOSE MONITORING 1 DEV DEV FS SCH ×3 (06:16→16:52)
[2022-12-19 06:59] LABS: BASOPHILS # (AUTO) 0.1 K/uL (0.00-0.22); BASOPHILS % (AUTO) 1.3 % (0.0-2.0); EOSINOPHILS # (AUTO) 0.2 K/uL (0-0.4); EOSINOPHILS % (AUTO) 2.4 % (0.0-4.0); HEMATOCRIT 22.8 % (36-52); HEMOGLOBIN 7.8 g/dL (12.0-18.0); LYMPHOCYTES # (AUTO) 1.4 K/uL (2.0-11.5); LYMPHOCYTES % (AUTO) 16.4 % (20.5-51.1); MEAN CORPUSCULAR HEMOGLOBIN 29 pg (27-31); MEAN CORPUSCULAR HGB CONC 34 g/dL (33-37); MEAN CORPUSCULAR VOLUME 83.9 fL (80-94); MONOCYTES # (AUTO) 0.7 K/uL (0.8-1.0); MONOCYTES % (AUTO) 8.3 % (1.7-9.3); NEUTROPHILS # (AUTO) 6.1 K/uL (1.8-7.7); NEUTROPHILS % (AUTO) 71.6 % (42.2-75.2); PLATELET COUNT (AUTO) 418 K/uL (140-450); RED BLOOD CELL COUNT(AUTO) 2.72 MIL/uL (4.20-6.10); RED CELL DISTRIBUTION WIDTH 17.1 % (11.6-13.7); WHITE BLOOD COUNT (AUTO) 8.5 K/uL (4.8-10.8)
[2022-12-19 07:12] LABS: CARBON DIOXIDE 24.6 mmol/L (21-32); CREATININE 1.2 mg/dL (0.6-1.3); POTASSIUM 3.6 mmol/L (3.5-5.1)
[2022-12-19 08:00] VITALS: BP 174/104
[2022-12-19] MEDS: FERROUS SULFATE 325 MG TABEC PO SCH ×2 (08:52→17:35)
[2022-12-19] MEDS: GABAPENTIN 100 MG CAP PO SCH (08:52)
[2022-12-19] MEDS: carvediloL 12.5 MG TAB PO SCH (08:53)
[2022-12-19] MEDS: ASPIRIN 81 MG TAB.CHEW PO SCH (08:53)
[2022-12-19] MEDS: ATORVASTATIN 20 MG TAB PO SCH (08:54)
[2022-12-19] MEDS: LOSARTAN 50 MG TAB PO SCH (08:54)
[2022-12-19] MEDS: PANTOPRAZOLE 40 MG TABEC PO SCH (08:54)
[2022-12-19] MEDS: Z-GUARD PASTE TP SCH (08:56)
[2022-12-19] MEDS ORDERED: FUROSEMIDE 40 MG/4 ML VIAL IVP SCH (09:00)
[2022-12-19] MEDS ORDERED: LOSA50TA66 PO (12:30)
[2022-12-19] MEDS ORDERED: ATOR40TA40 PO (12:30)
[2022-12-19] MEDS ORDERED: AMLO5TAB PO (12:30)
[2022-12-19] MEDS: INSULIN LISPRO SLIDING SCALE 100 UNITS/ML VIAL SUBQ PRN (12:45)
[2022-12-19] MEDS: NON ADHERENT DRESSING TP SCH (13:11)
--- NOTE | 2022-12-19 15:27 | NUR ---
LINOLEUM TILE FLOOR LAYER RECEIVED CALL FROM LUIS ALFREDO DISCHARGE PLANNING; REQUESTING ROOM AIR TRIAL FOR HOME OXYGEN QUALIFICATION; SATURATION GREATER THAN 93%
--- NOTE | 2022-12-19 15:44 | NUR ---
SUPPLEMENTAL OXYGEN AT 3 LPM VIA NC SATURATION 97%; REMOVED FROM SUPPLEMENTAL OXYGEN FOR ROOM TRIAL
[2022-12-19 15:52] VITALS: BP 169/106
[2022-12-19 16:00] VITALS: BP 167/106
--- NOTE | 2022-12-19 16:06 | NUR ---
ROOM AIR TRIAL SATURATION 90%; PLACED BACK ON SUPPLEMENTAL OXYGEN AT 2 LPM VIA NC; VITICULTURE TEACHER TO REPORT FINDINGS TO LUIS ALFREDO COSTUME SPECIALIST
--- NOTE | 2022-12-19 16:10 | NUR ---
ROOM AIR TRIAL REPORTED TO LUIS ALFREDO DISCHARGE PLANNING; ROOM AIR SATURATION DESCENDING TO 90% AT 20 MINUTES
--- NOTE | 2022-12-19 17:55 | NUR ---
2685 PATIENT SIGNED DISCHARGE CONSENT, WOUND DRESSING & PICC DRESSING CHANGED, DISCHARGE INSTRUCTION GIVE IN KYRGYZ, PIV ACCESS & WRIST BAND REMOVED. [facility] CALLED FOR CONTINUE IV ANTIBIOTIC THERAPY. BROTHER EDGAR KULKARNI ([phone]) CALLED FOR BRING PATIENT'S CHANGE CLOTHES & THERMOSTAT REPAIRER PATIENT ISSUE.
[2022-12-19 18:30] VITALS: BP 167/99
--- NOTE | 2022-12-19 19:01 | NUR ---
1845, PATIENT'S BROTHER WITH AND FRIEND BROUGHT PATIENT'S CHANGING CLOTHES HERE. PATIENT IS READY TO GO. 1800 ZOSYN COMPLETE INFUSING. DISCHARGE INSTRUCTION GIVE TO BROTHER & HIS WITH PATIENT PRESENT. NURSE WHEEL PATIENT OUT IN STABLE CONDITION
== END 2022-12-19 18:50 | disposition home or self-care (01) | DRG 344 ==
LOC: MED 09:22 → MTU 11:55
PROVIDERS: ADMIT Family Medicine; ATTEND Family Medicine
DX: E11.649 Type 2 diabetes mellitus with hypoglycemia without coma (principal); M86.8X7 Other osteomyelitis, ankle and foot; G93.41 Metabolic encephalopathy; E43 Unspecified severe protein-calorie malnutrition; I50.23 Acute on chronic systolic (congestive) heart failure; I42.9 Cardiomyopathy, unspecified; E86.0 Dehydration; I69.351 Hemiplegia and hemiparesis following cerebral infarction affecting right dominant side; E78.5 Hyperlipidemia, unspecified; I11.0 Hypertensive heart disease with heart failure; S91.301A Unspecified open wound, right foot, initial encounter; E11.69 Type 2 diabetes mellitus with other specified complication; Z20.822 Contact with and (suspected) exposure to COVID-19; E87.6 Hypokalemia; X58.XXXA Exposure to other specified factors, initial encounter; Y93.89 Activity, other specified; Y92.89 Other specified places as the place of occurrence of the external cause; Y99.8 Other external cause status; Z68.24 Body mass index [BMI] 24.0-24.9, adult
CPT/HCPCS: 36415; 71045; 80048; 80053; 81001; 82150; 82550; 82948; 83036; 83605; 83690; 83735; 83880; 84100; 84436; 84439; 84443; 84479; 84484; 85025; 85610; 85730; 87040; 87081; 87086; 93005; 94640; 96360; 96361; 96372; 97112; 97163-GP; 99285; J0360; J1815; J1940; J2354; J2543; J3490; J7060; Q0092